=== PATIENT | male | born 1955 | race African-American/Black ===

== ENCOUNTER 2019-05-19 07:41 | Inpatient (IN) | payer OTHER, SELFPAY ==
[2019-05-19] VITALS (28 sets, daily range): BP systolic 92–106; BP diastolic 59–81; PULSE 78–102; RESP 16–33; TEMP 36.3–37; O2SAT 85–100
--- NOTE | ~2019-05-19 | CT_ITS ---
EXAMINATION: CTA chest PE protocol EXAM DATE: 05/19/2019 09:53 INDICATION: Cough and shortness of breath. TECHNIQUE: Spiral CTA of the chest (pulmonary arteries) was performed with 100 cc Omnipaque 350 intr avenous contrast injection. Images were acquired during the pulmonary arterial phase. Coronal maxi mum intensity projection 3D-reconstructions were created by the technologist on dedicated workstation . Axial, coronal and sagittal reformatted images were reviewed. The dose-length product (DLP) for t his examination was 179.74 mGy-cm. The exposure was tailored according to patient size (auto mA exp osure control), and iterative reconstruction (ASIR) was used as additional dose reduction technique. There is no prior study for comparison. FINDINGS: Pulmonary arteries are well opacified and without intraluminal filling defects. No thora cic aortic dissection. There is linear bibasilar subsegmental atelectasis. There is mild bronchiecta sis and emphysema. There are no pleural or pericardial effusions. Tracheobronchial tree is patent. There is no mediastinal, hilar or axillary lymphadenopathy. There is no pneumothorax. Heart no rmal in size. No evidence of coronary arterial calcification. Upper abdomen is unremarkable. The re is mild thoracic spondylosis without osteoblastic or osteolytic lesions identified. IMPRESSION: 1. Linear bibasilar subsegmental atelectasis. 2. Mild emphysema and bronchiectasis. 3. No pulmonary emboli. Reviewed, dictated and finalized at location B.
--- NOTE | ~2019-05-19 | XR_ITS ---
EXAMINATION: XR chest 1V portable DATE: 05/19/2019 09:12 INDICATION: Shortness of breath. TECHNIQUE: A single frontal view of the chest was obtained. COMPARISON: None. FINDINGS: There is mild atelectasis in the lower lung zones. No pleural effusion or pneumothorax. The heart size is normal. IMPRESSION: 1. Mild atelectasis in the lower lung zones. Reviewed, dictated and finalized at location A.
--- NOTE | 2019-05-19 07:49 | ED.SOB ---
HPI - SOB/Dyspnea General Chief Complaint: Shortness of Breath/Dyspnea Stated Complaint: hypotensive Time Seen by Provider: 05/19/19 07:42 Source: patient Mode of arrival: EMS Limitations: other (poor historian) History of Present Illness HPI Narrative: A 63 y/o male pt presents to the ED, via EMS from [facility] facility, with c/o SOB that began yesterday evening. Per EMS, nursing staff stated that the pt was suspected of having COVID d/t to pt having a recent onset of a cough x 1 week. Pt states that he was placed on O2 x 2L via NC this am at his nursing facility. He has an O2 Sat of 100% on 2L of O2 via NC in the ED bed. He notes having a dry cough x 1 week, but denies fever, N/V, CP or ABD pain. Pt was recently admitted to [facility] for 3 weeks due to perforated viscus s/p right hemicolectomy, ileostomy and was discharged to [facility] facility on May 08, 2019. He states that he eats by mouth and uses his g-tube to supplement. Pt denies recent travel before hospitalization. Patient was also found to have a rectal mass that is adenocarcinoma on this hospital visit that he is to follow with oncology once he has gained strength. A complete HPI is limited d/t pt being a poor historian. elicited complaint: shortness of breath Onset (ago): day(s) Associated symptoms: cough (dry) Related Data Home Medications Medication Instructions Recorded Confirmed albuterol sulfate 2.5 mg INHALATION Q6H 05/19/19 05/19/19 amiodarone 200 mg PO BID 05/19/19 05/19/19 aspirin [Aspirin Low Dose] 81 mg PO DAILY 05/19/19 05/19/19 furosemide 20 mg PO DAILY 05/19/19 05/19/19 hydrocodone-acetaminophen 1 tablet PO Q6H PRN 05/19/19 05/19/19 lisinopril 2.5 mg PO DAILY 05/19/19 05/19/19 potassium chloride [Klor-Con 10] 10 meq PO DAILY 05/19/19 05/19/19 rosuvastatin 40 mg PO HS 05/19/19 05/19/19 Allergies Allergy/AdvReac Type Severity Reaction Status Date / Time No Known Allergies Allergy Verified 05/19/19 08:24 Review of Systems Review of Systems: Narrative: A complete ROS is limited d/t to pt being a poor historian Constitutional: Constitutional: Denies fever(s) Cardiovascular: Cardiovascular: Denies chest pain and Reports dyspnea Respiratory: Respiratory: Reports cough (dry x 1 week) Gastrointestinal: Gastrointestinal: Denies abdominal pain, Denies nausea and Denies vomiting PMFSH Past Medical History Medical History (Updated 05/19/19 @ 15:35 by Kiki Cline MD) Acute respiratory failure Adenocarcinoma Bowel obstruction Colon cancer Dysphagia Gastrointestinal tube present Hypokalemia Paroxysmal atrial fibrillation Ventricular tachycardia Surgical History Surgical History (Updated 05/19/19 @ 08:20 by Briana Alonso [facility]) History of bowel resection History of colon surgery History of ileostomy History of right hemicolectomy Family History Family History (Updated 05/19/19 @ 12:36 by Wayne Louis MD) Father , probable cardiac disease age in 60s Heart disease Mother , natural causes age 79 No problems noted. 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
--- NOTE | 2019-05-19 07:58 | ECG_ITS ---
Measurements Intervals [place] Rate: 102 P: 72 NC: 144 QRS: -66 QRSD: 116 T: 91 QT: 352 QTc: 459 Interpretive Statements SINUS TACHYCARDIA ATRIAL AND VENTRICULAR PREMATURE COMPLEXES INCOMPLETE RIGHT BUNDLE BRANCH BLOCK LEFT ANTERIOR FASCICULAR BLOCK LEFT VENTRICULAR HYPERTROPHY AND ST-T CHANGE BORDERLINE ST-T WAVE ABNORMALITY- LATERAL LEADS BASELINE ARTIFACT- I, II, III, AVR, AVL, V3, V5-V6 ABNORMAL ECG Electronically Signed On 05-19-2019 8:53:41 CDT by Nitesh Camp D.O.
[2019-05-19 08:26] LABS: Basophils Absolute Auto 0.2 K/mm3 (0.0-0.1); Eosinophils Absolute Auto 0.2 K/mm3 (0-0.3); Eosinophils Percent Auto 1.1 % (0-4.4); Immature Granulocyte Absolute 0.34 K/mm3 (0.00-0.031); Immature Granulocyte Percent A 2.2 % (0-0.5); Lymphocytes Absolute Auto 1.84 K/mm3 (0.9-3.2); Lymphocytes Percent Auto 11.7 % (18.3-44.2); Mean Corpuscular HGB Conc 34.4 g/dl (32-36); Mean Corpuscular Volume 81.4 fl (80-100); Mean Platelet Volume 10.7 fl (7.4-10.4); Monocytes Absolute Auto 1.6 K/mm3 (0.1-0.6); Monocytes Percent Auto 9.9 % (2.6-8.5); Neutrophils Absolute Auto 11.6 K/mm3 (1.3-6.7); Neutrophils Percent Auto 74.1 % (45.5-73.1); Platelet Count Result 402 k/mm3 (150-375); Red Blood Count 3.93 M/mm3 (4.6-6.20); Red Cell Distribution Width 14.7 % (11.5-14.5); White Blood Count 15.7 K/mm3 (4.5-10.0)
[2019-05-19 08:35] LABS: Lactic Acid Reflex 1.5 mmol/L (0.7-2.1)
[2019-05-19 08:36] LABS: INR 1.1; Partial Thromboplastin Time 28.1 SECONDS (22.3-36.8); Prothrombin Time 13.7 Seconds (11.1-14.7)
[2019-05-19 08:37] LABS: Alanine Aminotransferase 62 U/L (4-50); Albumin Level 3.3 g/dL (3.5-5.1); Alkaline Phosphatase 406 U/L (38-126); Aspartate Amino Transferase 61 U/L (17-59); Bilirubin,Total 0.5 mg/dL (0.2-1.3); Blood Urea Nitrogen 11 mg/dL (9-20); Calcium 8.8 mg/dL (8.4-10.2); Carbon Dioxide 30 mmol/L (22-30); Chloride 91 mmol/L (98-107); Estimated CRCL calculation 101 ml/min; Estimated Glomerular Filt Rate > 60; Glucose 115 mg/dL (75-110); Magnesium 1.7 mg/dL (1.6-2.3); Potassium 4.6 mmol/L (3.4-5.0); Sodium 131 mmol/L (137-145)
[2019-05-19] MEDS: ALBUTEROL SULFATE (*SP) AEROSOL 1 PUFF 2 PUFF INHALATION ×4 (08:41→19:55)
[2019-05-19 08:45] LABS: NT Pro B Type Natriuretic Pept 532 PG/ML (5-100)
[2019-05-19] MEDS: SODIUM CHLORIDE 0.9% IV 1,000 ML 999 ML IV CONT (08:45)
[2019-05-19 08:56] LABS: Base Excess ABG 0.9 mEq/l (+/-2.0); Carboxyhemoglobin 0.5 % THb (0-2.0); Fractional Inspired Oxygen 28 %; HCO3 ABG 26.6 mEq/l (22.0-26.0); Oxygen Content ABG 15.9 %vol (16.0-22.0); Oxygen Saturation ABG 99.1 % (95.0-100.0); PCO2 ABG 46.8 mmHg (35.0-45.0); PO2 ABG 172.3 mmHg (80.0-100.0); PO2 FiO2 Ratio Arterial Blood 6.15 %; Reduced Hemoglobin 1.5 %THb (0-5.0); Total Hemoglobin 11.3 g/dL (12.0-18.0); pH ABG 7.372 (7.350-7.450)
[2019-05-19 08:57] LABS: Device NASAL CANNULA; Site Drawn LEFT BRACHIAL
--- NOTE | 2019-05-19 10:02 | PC.NURSE ---
Attempt to call sister Jessica at [phone]. Number has been disconnected.
--- NOTE | 2019-05-19 10:15 | PC.NURSE ---
Pt's nares swabbed for covid 19 per protocol. [facility] authroization # [id number]. Pt voided per urinal approx 200 cc dark, cloudy yellow urine. Specimans sent to lab. Note also that pt has small amount of blood tinged mucous to diaper. Pericare done and new depends placed. Pt tolerated procedure well. States he is feeling better at present.
[2019-05-19 10:42] LABS: Add Urine Microscopic? YES; Appearance Urine Cloudy (Clear); Bacteria Urine 4+ /hpf; Bilirubin Urine Negative (Negative); Blood Urine 2+ (Negative); Color Urine Yellow (Yellow); Glucose Urine UA Negative (Negative); Ketones Urine Negative (Negative); Leukocyte Esterase Ur 3+ LEU/UL (Negative); Mucus Urine Heavy /lpf; Nitrate Urine Positive (Negative); Protein Urine 2+ mg/dL (Negative); RBC Urine 21-50 /hpf (0-2); Squamous Epithelial Cell Urine Few /hpf (Few); Urobilinogen Urine Negative mg/dL (<2.0); WBC Urine >75 /hpf
[2019-05-19] MEDS: methylPREDNISolone SOD SUCC 125 MG VIAL IV PUSH (11:11)
--- NOTE | 2019-05-19 11:21 | PC.NURSE ---
This RN took report from residential, [place] states that called 911 for patient's low O2 saturation and hypotension. residential did not mention anything about patient having covid-19 or suspected covid-19. Reports patient has hx of respiratory failure.
--- NOTE | 2019-05-19 11:35 | PC.NURSE ---
Floor unable to take report.
--- NOTE | 2019-05-19 12:21 | PC.NURSE ---
I contacted [facility] to clarify statement made to EMS - that patient was a Covid patient shelter DON stated that he was a new patient to their facility transferred to them in the past 14 days from [facility] and was kept separate from other residents to monitor for any symptoms of COVID 19 due to new status. Clarified sister's phone number as [phone] (Jessica).
[2019-05-19] MEDS: LACTATED RINGERS 1,000 ML 75 ML IV CONT (12:30)
--- NOTE | 2019-05-19 12:40 | PM.IMHP ---
H&P: HPI History of Present Illness Chief complaint: sepsis/UTI/hypoxia/COPD Narrative: Date of visit 05/18 1214. Guanakito Anderson is a 63 year old black male with recent history of colon resection and right hemicolectomy for perforated bowel and adenocarcinoma. He was convalescing at a local alf and has been noted to have minor cough and was slightly hypoxic and the sent emergency room for evaluation. Because he was there less than 14 days in the alf and was hypoxic he was considered a potential COVID patient. Had no fever. He denied any urinary symptoms but on arrival here was found to have marked pyuria and CT scan revealed no definite infiltrates or evidence of pneumonia or pulmonary emboli. He was admitted with what was thought to be mild COPD exacerbation with hypoxia and urinary tract infection probable early sepsis. Review of Systems Review of Systems: Narrative: Review of the systems reviewed and patient is not that reliable with orientation or responses but Constitutional he has lost least 40 lb over last 6 months no fevers since discharge apparently Eye no double vision scotoma Mouth no pharyngitis laryngitis Pulmonary as present illness cough primarily nonproductive no hemoptysis CV no chest pain palpitations although he had AFib and some short runs of V-tach while inpatient in [place] GI tube feedings,no hx of ulcers denies any symptoms Neuro no history of seizures or syncope [facility] Past Medical History Medical History (Updated 05/19/19 @ 13:15 by Wayne Louis MD) Acute respiratory failure Adenocarcinoma Bowel obstruction Colon cancer Dysphagia Gastrointestinal tube present Hypokalemia Paroxysmal atrial fibrillation Ventricular tachycardia Surgical History Surgical History ([facility]/19/19 @ 08:[facility] History of bowel resection History of colon surgery History of ileostomy History of right hemicolectomy Family History Family History (Updated 05/19/19 @ 12:36 by Wayne Louis MD) Father , probable cardiac disease age in 60s Heart disease Mother , natural causes age 79 No problems noted. 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 Gender identity (if verbalized by the patient): Male Meds Home Medications and Allergies Home Medications Medication Instructions Recorded Confirmed Type albuterol sulfate 2.5 mg INHALATION Q6H 05/19/19 05/19/19 History amiodarone 200 mg PO BID 05/19/19 05/19/19 History aspirin [Aspirin Low Dose] 05/19/19 History furosemide 20 mg PO DAILY 05/19/19 05/19/19 History hydrocodone-acetaminophen 1 tablet PO Q6H PRN 05/19/19 05/19/19 History lisinopril 2.5 mg PO DAILY 05/19/19 05/19/19 History potassium chloride [Klor-Con 10] 10 meq PO DAILY 05/19/19 05/19/19 History rosuvastatin 40 mg PO HS 05/19/19 05/19/19 History Allergies Allergy/AdvReac Type Severity Reaction Status Date / Time No Known Allergies Allergy Verified 05/19/19 08:24 Vital Signs Vital Signs - 24 hr 05/19/19 07:41 05/19/19 07:48 05/19/19 08:16 Temperature 36.8 C Pulse Rate 102 H 99 101 H Respiratory Rate 29 H 33 H Blood Pressure 102/77 106/81 Pulse Oximetry 89 L 05/19/19 08:30 05/19/19 08:31 05/19/19 08:45 Temperature Pulse Rate 98 102 H 100 Respiratory Rate 28 H 26 H 29 H Blood Pressure 104/78 Pulse Oximetry 05/19/19 08:46 05/19/19 09:01 05/19/19 09:16
--- NOTE | 2019-05-19 15:52 | ADMGEN ---
This patient, Guanakito Anderson, was admitted to [facility] Surg Room 328-01 at 1230. Patient/family oriented to hospital policies and general routines including ID bracelet, bed and alarms, visiting hours, pain management, procedures, bathroom and other care routines, personal items, smoking policy, room service/diet, and visiting hours. Valuables list has been completed. Information on how to activate the Rapid Response Team has been discussed. Patient/Family are encouraged to report perceived risks to care and to ask questions if they do not understand what they are told or what they should do.
[2019-05-19 18:08] LABS: Glucose Point of Care 196 (65-105)
[2019-05-19 18:09] LABS: Glucose Point of Care 168 (65-105)
[2019-05-19 18:17] LABS: Base Excess ABG 0.1 mEq/l (+/-2.0); Fractional Inspired Oxygen 28 %; HCO3 ABG 25.7 mEq/l (22.0-26.0); Oxygen Content ABG 15.3 %vol (16.0-22.0); Oxygen Saturation ABG 98.2 % (95.0-100.0); Oxyhemoglobin 96.8 % THb (90.0-100.0); PCO2 ABG 45.7 mmHg (35.0-45.0); PO2 ABG 119.7 mmHg (80.0-100.0); PO2 FiO2 Ratio Arterial Blood 4.28 %; Total Hemoglobin 11.1 g/dL (12.0-18.0); pH ABG 7.368 (7.350-7.450)
[2019-05-19 18:20] LABS: Device NASAL CANNULA; Modified Allen's Test Pass; Site Drawn RIGHT RADIAL
[2019-05-19] MEDS: ENOXAPARIN 40 MG/0.4 ML SYRINGE SUB-Q (21:10)
[2019-05-19] MEDS: AMIODARONE HCL 200 MG TABLET PO (21:10)
[2019-05-19] MEDS: ROSUVASTATIN 10 MG TABLET 40 MG PO (21:10)
[2019-05-19 21:42] LABS: Glucose Point of Care 152 (65-105)
[2019-05-20] VITALS (11 sets, daily range): BP systolic 93–107; BP diastolic 59–63; PULSE 72–104; RESP 16–22; TEMP 36.3–37.1; O2SAT 94–100; BMI 17.2
[2019-05-20] MEDS: LACTATED RINGERS 1,000 ML 75 ML IV CONT ×2 (01:06→12:58)
[2019-05-20 06:00] LABS: Basophils Absolute Auto 0.1 K/mm3 (0.0-0.1); Basophils Percent Auto 0.4 % (0.2-1.2); Hematocrit 27.6 % (42.0-52.0); Hemoglobin 9.2 g/dL (14.0-18.0); Immature Granulocyte Absolute 0.25 K/mm3 (0.00-0.031); Immature Granulocyte Percent A 1.9 % (0-0.5); Lymphocytes Absolute Auto 1.42 K/mm3 (0.9-3.2); Lymphocytes Percent Auto 10.7 % (18.3-44.2); Mean Corpuscular HGB Conc 33.3 g/dl (32-36); Mean Corpuscular Hemoglobin 27.5 pg (26-34); Mean Corpuscular Volume 82.4 fl (80-100); Mean Platelet Volume 10.3 fl (7.4-10.4); Monocytes Absolute Auto 0.8 K/mm3 (0.1-0.6); Monocytes Percent Auto 5.8 % (2.6-8.5); Neutrophils Absolute Auto 10.8 K/mm3 (1.3-6.7); Neutrophils Percent Auto 81.2 % (45.5-73.1); Platelet Count Result 400 k/mm3 (150-375); Red Blood Count 3.35 M/mm3 (4.6-6.20); Red Cell Distribution Width 14.7 % (11.5-14.5); White Blood Count 13.3 K/mm3 (4.5-10.0)
[2019-05-20 06:21] LABS: Alanine Aminotransferase 49 U/L (4-50); Albumin Level 2.9 g/dL (3.5-5.1); Alkaline Phosphatase 325 U/L (38-126); Aspartate Amino Transferase 53 U/L (17-59); Bilirubin,Total 0.2 mg/dL (0.2-1.3); Blood Urea Nitrogen 14 mg/dL (9-20); Calcium 8.7 mg/dL (8.4-10.2); Carbon Dioxide 32 mmol/L (22-30); Chloride 96 mmol/L (98-107); Estimated CRCL calculation 99 ml/min; Estimated Glomerular Filt Rate > 60; Glucose 206 mg/dL (75-110); Potassium 4.6 mmol/L (3.4-5.0); Sodium 133 mmol/L (137-145)
[2019-05-20 08:27] LABS: Glucose Point of Care 183 (65-105)
[2019-05-20] MEDS: AMIODARONE HCL 200 MG TABLET PO ×2 (09:58→20:27)
[2019-05-20] MEDS: FUROSEMIDE 20 MG TABLET PO (09:59)
[2019-05-20] MEDS: POTASSIUM CHLORIDE 10 MEQ TABLET.ER PO (09:59)
[2019-05-20] MEDS: ASPIRIN 81 MG ENTERIC TABLET PO (09:59)
[2019-05-20] MEDS: ALBUTEROL SULFATE (*SP) AEROSOL 1 PUFF 2 PUFF INHALATION ×4 (10:39→20:52)
[2019-05-20 12:02] LABS: Glucose Point of Care 188 (65-105)
--- NOTE | 2019-05-20 14:26 | PM.IMPN ---
Progress Note: A&P Assessment and Plan (1) Acute respiratory failure with hypoxemia: Code(s): J96.01 - Acute respiratory failure with hypoxia Status: Acute Assessment and Plan: Probably on the basis of COPD and/or sepsis. CT showed no emboli or definite infiltrate. BNP only in the 500s. Continue updrafts and saturating well on 2 L and no steroids at present time. Did have mild cough and ceftriaxone was added for UTI which will help pulmonary also. Low O2 sat may have been simply the results of his arterial constriction and poor detection per finger pulse ox.. Repeat oxygen saturation by ABG was much higher. Eighty-two versus 119. (2) Sepsis: Code(s): A41.9 - Sepsis, unspecified organism Status: Acute Assessment and Plan: On the basis of leukocytosis and tachypnea. Urine appears likely source and culture still pending but blood cultures already growing gram-negative rods. Had E coli sepsis at recent hospitalization thought to be GI source Lactic acid normal (3) Urinary tract infection: Code(s): N39.0 - Urinary tract infection, site not specified Status: Acute Assessment and Plan: Marked pyuria on UA, urine pending and ceftriaxone started, blood culture growing gram-negative rods (4) Malnutrition: Code(s): E46 - Unspecified protein-calorie malnutrition Status: Acute Assessment and Plan: Continue tube feedings and oral feedings (5) Paroxysmal atrial fibrillation: Code(s): I48.0 - Paroxysmal atrial fibrillation Status: Acute Assessment and Plan: Sinus rhythm at the present time will continue amiodarone. Not a good candidate for anticoagulation which was never started (6) DVT prophylaxis: Code(s): Z29.9 - Encounter for prophylactic measures, unspecified Status: Acute Assessment and Plan: Lovenox Subjective Date/time seen: 05/20/19 14:26 Interval history: Date of visit 05/19. 63-year-old black male with recent colon resection ileostomy and J-tube placement admitted with decreasing oxygen saturation in sepsis. More alert today and feeling better and blood cultures are growing gram-negative rods thought to be urinary source.. Saturation was inaccurate by periphery thought secondary to his vascular compromise with his sepsis. Exam Narrative: Exam Narrative: Blood pressure 100/62 pulse is 100 saturating 100% on 2 L nasal cannula Pupils equal reactive to light sclera anicteric Lungs clear CV regular rate rhythm tachy Abdomen is soft G-tube in place and ileostomy functioning Extremities without edema distal pulses 2+ and warmer today Neuro alert cooperative no focal focal deficits Objective Data Vital Signs Vital Signs: Vital Signs - 24 hr 05/19/19 18:00 05/19/19 19:56 05/19/19 20:00 Temperature 36.3 C L 37.0 C Pulse Rate 78 78 Respiratory Rate 18 16 Blood Pressure 99/66 L 96/68 L Pulse Oximetry 85 L 95 100 05/19/19 21:10 05/20/19 00:00 05/20/19 04:00 Temperature 36.6 C 37.0 C Pulse Rate 80 72 91 Respiratory Rate 16 16 Blood Pressure 99/62 L 95/59 L Pulse Oximetry 98 100 05/20/19 08:00 05/20/19 09:57 05/20/19 09:58 Temperature 36.9 C Pulse Rate 88 102 H 102 H Respiratory Rate 20 18 Blood Pressure 93/59 L 107/61 Pulse Oximetry 100 100 05/20/19 10:45 05/20/19 12:00 Temperature 37.1 C Pulse Rate 104 H Respiratory Rate 22 H Blood Pressure 101/63 Pulse Oximetry 95 100 Intake/Output Intake/Output: Intake & Output 05/17/19 05/18/19 05/19/19 05/20/19 23:59 23:59 23:59 23:59 Intake Total 1970 3320 Output Total 600 850 Balance 1370 2470 Meds/Results Medications: Active Medications Generic Name Dose Route Start Last Admin Trade Name Freq PRN Reason Stop Dose Admin Hydrocodone Bitart/Acetaminophen 1 tab 05/19/19 13:19 05/19/19 14:40 [place] 7.5-325 Mg PO 1 tab Q6H PRN Administration Pain (Scale Score 7-10) Albuterol 2 puff 04
[2019-05-20 16:19] LABS: Glucose Point of Care 180 (65-105)
[2019-05-20] MEDS: ENOXAPARIN 40 MG/0.4 ML SYRINGE SUB-Q (20:27)
[2019-05-20] MEDS: ROSUVASTATIN 10 MG TABLET 40 MG PO (20:28)
[2019-05-20 21:50] LABS: Glucose Point of Care 175 (65-105)
[2019-05-21] VITALS (10 sets, daily range): BP systolic 96–106; BP diastolic 58–65; PULSE 65–93; RESP 16–20; TEMP 36.5–37.3; O2SAT 93–100
[2019-05-21] MEDS: LACTATED RINGERS 1,000 ML 75 ML IV CONT (03:46)
[2019-05-21] MEDS: ASPIRIN 81 MG ENTERIC TABLET PO (08:11)
[2019-05-21] MEDS: POTASSIUM CHLORIDE 10 MEQ TABLET.ER PO (08:11)
[2019-05-21] MEDS: AMIODARONE HCL 200 MG TABLET PO ×2 (08:17→22:50)
[2019-05-21] MEDS: ALBUTEROL SULFATE (*SP) AEROSOL 1 PUFF 2 PUFF INHALATION ×4 (09:00→20:10)
[2019-05-21] MEDS: FUROSEMIDE 20 MG TABLET PO (09:20)
[2019-05-21 09:33] LABS: Basophils Absolute Auto 0.1 K/mm3 (0.0-0.1); Basophils Percent Auto 0.4 % (0.2-1.2); Eosinophils Absolute Auto 0.1 K/mm3 (0-0.3); Eosinophils Percent Auto 1.1 % (0-4.4); Hemoglobin 10.2 g/dL (14.0-18.0); Immature Granulocyte Absolute 0.23 K/mm3 (0.00-0.031); Immature Granulocyte Percent A 1.9 % (0-0.5); Lymphocytes Absolute Auto 1.61 K/mm3 (0.9-3.2); Lymphocytes Percent Auto 13.2 % (18.3-44.2); Mean Corpuscular Hemoglobin 27.9 pg (26-34); Mean Corpuscular Volume 82.2 fl (80-100); Monocytes Absolute Auto 1.1 K/mm3 (0.1-0.6); Monocytes Percent Auto 9.1 % (2.6-8.5); Neutrophils Absolute Auto 9.1 K/mm3 (1.3-6.7); Neutrophils Percent Auto 74.3 % (45.5-73.1); Platelet Count Result 448 k/mm3 (150-375); Red Blood Count 3.65 M/mm3 (4.6-6.20); Red Cell Distribution Width 15.1 % (11.5-14.5); White Blood Count 12.2 K/mm3 (4.5-10.0)
[2019-05-21 09:52] LABS: Blood Urea Nitrogen 8 mg/dL (9-20)
[2019-05-21 09:53] LABS: Calcium 8.6 mg/dL (8.4-10.2); Carbon Dioxide 36 mmol/L (22-30); Chloride 94 mmol/L (98-107); Estimated CRCL calculation 120 ml/min; Estimated Glomerular Filt Rate > 60; Glucose 94 mg/dL (75-110); Potassium 4.2 mmol/L (3.4-5.0); Sodium 133 mmol/L (137-145)
--- NOTE | 2019-05-21 16:33 | PM.IMPN ---
Progress Note: A&P Assessment and Plan (1) Acute respiratory failure with hypoxemia: Code(s): J96.01 - Acute respiratory failure with hypoxia Status: Acute Assessment and Plan: Probably on the basis of COPD and/or sepsis. CT showed no emboli or definite infiltrate. BNP only in the 500s. Continue updrafts and saturating well on 2 L and no steroids at present time. Did have mild cough and ceftriaxone was added for UTI which will help pulmonary also. Low O2 sat may have been simply the results of his arterial constriction and poor detection per finger pulse ox.. Repeat oxygen saturation by ABG was much higher. Eighty-two versus 119. and doing well today once is perfusing better (2) Sepsis: Code(s): A41.9 - Sepsis, unspecified organism Status: Acute Assessment and Plan: On the basis of leukocytosis and tachypnea. Urine appears likely source and culture only mixed organisms but marked pyuria and blood cultures growing coli. Had E coli sepsis at recent hospitalization thought to be GI source then. Lactic acid normal (3) Urinary tract infection: Code(s): N39.0 - Urinary tract infection, site not specified Status: Acute Assessment and Plan: Marked pyuria on UA, urine mixed organisms and ceftriaxone started, blood culture growing E coli (4) Malnutrition: Code(s): E46 - Unspecified protein-calorie malnutrition Status: Acute Assessment and Plan: Continue tube feedings and oral feedings (5) Paroxysmal atrial fibrillation: Code(s): I48.0 - Paroxysmal atrial fibrillation Status: Acute Assessment and Plan: Sinus rhythm at the present time will continue amiodarone. Not a good candidate for anticoagulation which was never started (6) DVT prophylaxis: Code(s): Z29.9 - Encounter for prophylactic measures, unspecified Status: Acute Assessment and Plan: Lovenox Subjective Date/time seen: 05/21/19 16:33 Interval history: Date of visit 05/20. 63-year-old black male with recent colon resectionwith ileostomy and J-tube placement admitted with decreasing oxygen saturation and sepsis. More alert today and feeling better and blood cultures are growing Ecoli thought to be urinary source.. Saturation was inaccurate by periphery thought secondary to his vascular compromise with his sepsis. Exam Narrative: Exam Narrative: Blood pressure 106/64 pulse is 72 saturating 100% on 2 L nasal cannula Pupils equal reactive to light sclera anicteric Lungs clear CV regular rate rhythm tachy Abdomen is soft G-tube in place and ileostomy functioning Extremities without edema distal pulses 2+ and warmer today Neuro alert cooperative no focal focal deficits Objective Data Vital Signs Vital Signs: Vital Signs - 24 hr 05/20/19 20:00 05/20/19 20:27 05/20/19 20:50 Temperature 36.8 C Pulse Rate 95 97 Respiratory Rate 16 Blood Pressure 101/61 Pulse Oximetry 100 94 05/21/19 00:00 05/21/19 03:53 05/21/19 07:56 Temperature 37.0 C 36.5 C 36.8 C Pulse Rate 85 84 89 Respiratory Rate 16 20 16 Blood Pressure 98/58 L 96/61 L 100/65 Pulse Oximetry 98 100 100 05/21/19 08:17 05/21/19 09:03 05/21/19 13:36 Temperature 37.1 C Pulse Rate 65 86 Respiratory Rate 16 Blood Pressure 101/61 Pulse Oximetry 93 100 05/21/19 16:29 Temperature 37.3 C Pulse Rate 93 Respiratory Rate 16 Blood Pressure 106/65 Pulse Oximetry 100 Intake/Output Intake/Output: Intake & Output 05/18/19 05/19/19 05/20/19 05/21/19 23:59 23:59 23:59 23:59 Intake Total 1970 3490 2330 Output Total 600 1450 600 Balance 1370 2040 1730 Meds/Results Medications: Active Medications Generic Name Dose Route Start Last Admin Trade Name Freq PRN Reason Stop Dose Admin Hydrocodone Bitart/Acetaminophen 1 tab 05/19/19 13:19 05/21/19 00:53 [place] 7.5-325 Mg PO 1 tab Q6H PRN Administration Pain (Scale Score 7-10) Albuterol 2 p
[2019-05-21 17:25] LABS: Glucose Point of Care 156 (65-105)
[2019-05-21] MEDS: ENOXAPARIN 40 MG/0.4 ML SYRINGE SUB-Q (23:00)
[2019-05-21] MEDS: ROSUVASTATIN 10 MG TABLET 40 MG PO (23:01)
[2019-05-22] VITALS (11 sets, daily range): BP systolic 91–106; BP diastolic 56–67; PULSE 70–100; RESP 16–20; TEMP 36.7–37.3; O2SAT 96–100
[2019-05-22 03:59] LABS: Glucose Point of Care 147 (65-105)
[2019-05-22 06:04] LABS: Basophils Absolute Auto 0.1 K/mm3 (0.0-0.1); Basophils Percent Auto 0.6 % (0.2-1.2); Eosinophils Absolute Auto 0.1 K/mm3 (0-0.3); Eosinophils Percent Auto 1.1 % (0-4.4); Hematocrit 29.1 % (42.0-52.0); Hemoglobin 9.6 g/dL (14.0-18.0); Immature Granulocyte Absolute 0.35 K/mm3 (0.00-0.031); Immature Granulocyte Percent A 2.7 % (0-0.5); Lymphocytes Absolute Auto 1.84 K/mm3 (0.9-3.2); Lymphocytes Percent Auto 14.1 % (18.3-44.2); Mean Corpuscular Hemoglobin 27.4 pg (26-34); Mean Corpuscular Volume 82.9 fl (80-100); Mean Platelet Volume 10.4 fl (7.4-10.4); Monocytes Absolute Auto 1.5 K/mm3 (0.1-0.6); Monocytes Percent Auto 11.5 % (2.6-8.5); Neutrophils Absolute Auto 9.2 K/mm3 (1.3-6.7); Platelet Count Result 449 k/mm3 (150-375); Red Blood Count 3.51 M/mm3 (4.6-6.20); Red Cell Distribution Width 15.3 % (11.5-14.5); White Blood Count 13.1 K/mm3 (4.5-10.0)
[2019-05-22 06:17] LABS: Blood Urea Nitrogen 11 mg/dL (9-20); Calcium 8.3 mg/dL (8.4-10.2); Carbon Dioxide 39 mmol/L (22-30); Chloride 92 mmol/L (98-107); Estimated CRCL calculation 153 ml/min; Estimated Glomerular Filt Rate > 60; Glucose 114 mg/dL (75-110); Potassium 4.2 mmol/L (3.4-5.0); Sodium 133 mmol/L (137-145)
[2019-05-22 08:28] LABS: Glucose Point of Care 104 (65-105)
[2019-05-22] MEDS: FUROSEMIDE 20 MG TABLET PO (09:32)
[2019-05-22] MEDS: AMIODARONE HCL 200 MG TABLET PO ×2 (09:33→21:18)
[2019-05-22] MEDS: ASPIRIN 81 MG ENTERIC TABLET PO (09:34)
[2019-05-22] MEDS: POTASSIUM CHLORIDE 10 MEQ TABLET.ER PO (09:34)
[2019-05-22] MEDS: ALBUTEROL SULFATE (*SP) AEROSOL 1 PUFF 2 PUFF INHALATION ×3 (09:37→21:18)
--- NOTE | 2019-05-22 10:16 | PCNFU ---
Nutrition Follow-Up Complete: Underweight R/T reduced PO intake as evidence by BMI of 17.3. Goal: Total intake will meet estimated nutrition needs progressing towards goal. Pt current nutrition is Soft and Bite Sized Level 6/Mildly Thick Level 2 with Tube feedings of Jevity 1.5 q 6 hours. Nutrition recommendation:Agree Last recorded weight is 56.2 kg. No new weight. Bowel Motility:+BM reported 05/19 Labs Reviewed:Glu 114,Cr 0.3,Na 133,Hct 29.1,Hgb 9.6 Meds Noted:Lovenox,Lasix Additional Notes: Spoke with nursing today for follow up due to COVID-19 precautions. Patient intake on oral diet has been poor 0-25%. Tube feedings had been 370 ml q 4 hours, patient reporting feeling full. MD orders to change feeding to q 6 hours of Jevity 1.5. Patient will be receiving 2220 kcals and 60 gms protein from tube feedings meeting 100% of patients caloric needs. Free Water Flushes 30 ml q 4 hours. Diet supplements will continue with Thrive Ice Cream BID providing an additional 270 and 9 gms protein. Monitoring: PO intake, EN tolerance, labs, weight every t/f
[2019-05-22 12:35] LABS: Glucose Point of Care 79 (65-105)
--- NOTE | 2019-05-22 13:53 | PM.IMPN ---
Progress Note: A&P Assessment and Plan (1) Acute respiratory failure with hypoxemia: Code(s): J96.01 - Acute respiratory failure with hypoxia Status: Acute Assessment and Plan: Probably on the basis of COPD and/or sepsis. CT showed no emboli or definite infiltrate. BNP only in the 500s. Continue updrafts and saturating well on 1 L and no steroids at present time. Did have mild cough and ceftriaxone was added for UTI which will help pulmonary also. Low O2 sat may have been simply the results of his arterial constriction and poor detection per finger pulse ox.. Repeat oxygen saturation by ABG was much higher. Eighty-two versus 119. and doing well today once is perfusing better (2) Sepsis: Code(s): A41.9 - Sepsis, unspecified organism Status: Acute Assessment and Plan: On the basis of leukocytosis and tachypnea. Urine appears likely source and culture only mixed organisms but marked pyuria and blood cultures growing coli. Had E coli sepsis at recent hospitalization thought to be GI source then. Lactic acid normal Day 05/18 of IV antibotics (3) Urinary tract infection: Code(s): N39.0 - Urinary tract infection, site not specified Status: Acute Assessment and Plan: Marked pyuria on UA, urine mixed organisms and ceftriaxone started, blood culture growing E coli sensitive to ceftriaxone (4) Malnutrition: Code(s): E46 - Unspecified protein-calorie malnutrition Status: Acute Assessment and Plan: Continue tube feedings and oral feedings (5) Paroxysmal atrial fibrillation: Code(s): I48.0 - Paroxysmal atrial fibrillation Status: Acute Assessment and Plan: Sinus rhythm at the present time will continue amiodarone. Not a good candidate for anticoagulation which was never started (6) DVT prophylaxis: Code(s): Z29.9 - Encounter for prophylactic measures, unspecified Status: Acute Assessment and Plan: Lovenox Subjective Date/time seen: 05/22/19 13:53 Interval history: Date of visit 05/21. 63-year-old black male with recent colon resection with ileostomy and J-tube placement admitted with decreasing oxygen saturation and sepsis. More alert each day and feeling better and blood cultures are growing Ecoli thought to be urinary source.. Saturation was inaccurate by periphery thought secondary to his vascular compromise with his sepsis. No complaints Exam Narrative: Exam Narrative: Blood pressure 98/60 pulse is 92 saturating 100% on 1 L nasal cannula Pupils equal reactive to light sclera anicteric Lungs clear CV regular rate rhythm and less tachy Abdomen is soft G-tube in place and ileostomy functioning Extremities without edema distal pulses 2+ and warmer today Neuro alert cooperative no focal focal deficits Objective Data Vital Signs Vital Signs: Vital Signs - 24 hr 05/21/19 16:29 05/21/19 20:12 05/21/19 22:00 Temperature 37.3 C 37.2 C Pulse Rate 93 89 Respiratory Rate 16 20 Blood Pressure 106/65 103/62 Pulse Oximetry 100 94 100 05/21/19 22:50 05/22/19 02:00 05/22/19 06:00 Temperature 36.7 C 36.7 C Pulse Rate 86 100 73 Respiratory Rate 20 20 Blood Pressure 102/63 106/67 Pulse Oximetry 100 96 05/22/19 09:33 05/22/19 09:38 05/22/19 10:00 Temperature 36.7 C Pulse Rate 70 87 92 Respiratory Rate 16 16 Blood Pressure 96/61 L Pulse Oximetry 99 100 05/22/19 10:10 Temperature Pulse Rate 77 Respiratory Rate 16 Blood Pressure Pulse Oximetry 99 Intake/Output Intake/Output: Intake & Output 05/19/19 05/20/19 05/21/19 05/22/19 23:59 23:59 23:59 23:59 Intake Total 1970 3490 3890 1000 Output Total 600 1450 1400 825 Balance 1370 2040 2490 175 Meds/Results Medications: Active Medications Generic Name Dose Route Start Last Admin Trade Name Freq PRN Reason Stop Dose Admin Hydrocodone Bitart/Acetaminophen 1 tab 05/19/19 13:19 05/21/19 00:53 [place] 7.5-325 Mg P
[2019-05-22 18:03] LABS: Glucose Point of Care 137 (65-105)
[2019-05-22 20:33] LABS: Glucose Point of Care 204 (65-105)
[2019-05-22] MEDS: ROSUVASTATIN 10 MG TABLET 40 MG PO (21:18)
[2019-05-22] MEDS: ENOXAPARIN 40 MG/0.4 ML SYRINGE SUB-Q (21:18)
[2019-05-23] VITALS (8 sets, daily range): BP systolic 99–119; BP diastolic 66–74; PULSE 66–98; RESP 16–18; TEMP 36–37.1; O2SAT 97–100
[2019-05-23] MEDS: ALBUTEROL SULFATE (*SP) AEROSOL 1 PUFF 2 PUFF INHALATION ×3 (07:46→19:21)
[2019-05-23] MEDS: POTASSIUM CHLORIDE 10 MEQ TABLET.ER PO (08:08)
[2019-05-23] MEDS: ASPIRIN 81 MG ENTERIC TABLET PO (08:08)
[2019-05-23] MEDS: FUROSEMIDE 20 MG TABLET PO (08:09)
[2019-05-23] MEDS: AMIODARONE HCL 200 MG TABLET PO ×2 (08:09→21:36)
[2019-05-23 12:37] LABS: Glucose Point of Care 166 (65-105)
[2019-05-23 12:46] LABS: Glucose Point of Care 159 (65-105)
--- NOTE | 2019-05-23 15:18 | PM.IMPN ---
Progress Note: A&P Assessment and Plan (1) Acute respiratory failure with hypoxemia: Code(s): J96.01 - Acute respiratory failure with hypoxia Status: Acute Assessment and Plan: Probably on the basis of COPD and/or sepsis. CT showed no emboli or definite infiltrate. BNP only in the 500s. Continue updrafts and saturating well now on RA and no steroids at present time. Did have mild cough and ceftriaxone was added for UTI which will help pulmonary also. Low O2 sat may have been simply the results of his arterial constriction and poor detection per finger pulse ox.. Repeat oxygen saturation by ABG was much higher. Eighty-two versus 119. and doing well today once is perfusing better (2) Sepsis: Code(s): A41.9 - Sepsis, unspecified organism Status: Acute Assessment and Plan: On the basis of leukocytosis and tachypnea. Urine appears likely source and culture only mixed organisms but marked pyuria and blood cultures growing coli sensitive to ceftriaxone. Had E coli sepsis at recent hospitalization thought to be GI source then. Lactic acid normal Day 5 of IV antibotics recheck WBC in am (3) Urinary tract infection: Code(s): N39.0 - Urinary tract infection, site not specified Status: Acute Assessment and Plan: Marked pyuria on UA, urine mixed organisms and ceftriaxone started, blood culture growing E coli sensitive to ceftriaxone (4) Malnutrition: Code(s): E46 - Unspecified protein-calorie malnutrition Status: Acute Assessment and Plan: Continue tube feedings and oral feedings (5) Paroxysmal atrial fibrillation: Code(s): I48.0 - Paroxysmal atrial fibrillation Status: Acute Assessment and Plan: Sinus rhythm at the present time will continue amiodarone. Not a good candidate for anticoagulation which was never started (6) DVT prophylaxis: Code(s): Z29.9 - Encounter for prophylactic measures, unspecified Status: Acute Assessment and Plan: Lovenox Subjective Date/time seen: 05/23/19 15:18 Interval history: Date of visit 05/22. 63-year-old black male with recent colon resection with ileostomy and J-tube placement admitted with decreasing oxygen saturation and sepsis. More alert each day and feeling better and blood cultures are growing Ecoli thought to be urinary source.. Saturation was inaccurate by periphery thought secondary to his vascular compromise with his sepsis. No complaints Exam Narrative: Exam Narrative: Blood pressure 98/66 pulse is 94 saturating 100% on RA Pupils equal reactive to light sclera anicteric Lungs clear CV regular rate rhythm and less tachy Abdomen is soft G-tube in place and ileostomy functioning Extremities without edema distal pulses 2+ and warmer today Neuro alert cooperative no focal focal deficits Objective Data Vital Signs Vital Signs: Vital Signs - 24 hr 05/22/19 18:00 05/22/19 21:18 05/22/19 21:21 Temperature 36.7 C Pulse Rate 91 89 97 Respiratory Rate 18 18 Blood Pressure 100/60 Pulse Oximetry 100 96 05/22/19 22:00 05/23/19 02:00 05/23/19 06:00 Temperature 37.3 C 36.9 C 37.1 C Pulse Rate 97 66 88 Respiratory Rate 20 18 16 Blood Pressure 100/60 105/68 102/67 Pulse Oximetry 99 97 99 05/23/19 07:46 05/23/19 08:09 05/23/19 10:03 Temperature 36.0 C L Pulse Rate 88 88 95 Respiratory Rate 18 16 Blood Pressure 99/66 L Pulse Oximetry 97 100 Intake/Output Intake/Output: Intake & Output 05/20/19 05/21/19 05/22/19 05/23/19 23:59 23:59 23:59 23:59 Intake Total 3490 3890 2550 920 Output Total 1450 1400 1875 1000 Balance 2040 2490 675 -80 Meds/Results Medications: Active Medications Generic Name Dose Route Start Last Admin Trade Name Freq PRN Reason Stop Dose Admin Hydrocodone Bitart/Acetaminophen 1 tab 05/19/19 13:19 05/21/19 00:53 [place] 7.5-325 Mg PO 1 tab Q6H PRN Administration Pain (Scale Score 7-10)
[2019-05-23 17:43] LABS: Glucose Point of Care 94 (65-105)
[2019-05-23 20:36] LABS: Glucose Point of Care 248 (65-105)
[2019-05-23] MEDS: ROSUVASTATIN 10 MG TABLET 40 MG PO (21:36)
[2019-05-23] MEDS: ENOXAPARIN 40 MG/0.4 ML SYRINGE SUB-Q (21:36)
[2019-05-24] VITALS (10 sets, daily range): BP systolic 101–110; BP diastolic 64–75; PULSE 93–104; RESP 16–20; TEMP 36.5–36.9; O2SAT 93–99
[2019-05-24 06:00] LABS: Basophils Absolute Auto 0.1 K/mm3 (0.0-0.1); Basophils Percent Auto 0.8 % (0.2-1.2); Eosinophils Absolute Auto 0.2 K/mm3 (0-0.3); Eosinophils Percent Auto 1.3 % (0-4.4); Hematocrit 30.9 % (42.0-52.0); Hemoglobin 10.5 g/dL (14.0-18.0); Immature Granulocyte Absolute 0.62 K/mm3 (0.00-0.031); Immature Granulocyte Percent A 4.3 % (0-0.5); Lymphocytes Absolute Auto 1.82 K/mm3 (0.9-3.2); Lymphocytes Percent Auto 12.7 % (18.3-44.2); Mean Corpuscular Hemoglobin 27.6 pg (26-34); Mean Corpuscular Volume 81.1 fl (80-100); Mean Platelet Volume 10.6 fl (7.4-10.4); Monocytes Absolute Auto 1.4 K/mm3 (0.1-0.6); Monocytes Percent Auto 9.8 % (2.6-8.5); Neutrophils Absolute Auto 10.2 K/mm3 (1.3-6.7); Neutrophils Percent Auto 71.1 % (45.5-73.1); Platelet Count Result 508 k/mm3 (150-375); Red Blood Count 3.81 M/mm3 (4.6-6.20); White Blood Count 14.3 K/mm3 (4.5-10.0)
[2019-05-24 06:16] LABS: Blood Urea Nitrogen 13 mg/dL (9-20); Calcium 8.4 mg/dL (8.4-10.2); Carbon Dioxide 38 mmol/L (22-30); Chloride 91 mmol/L (98-107); Estimated CRCL calculation 153 ml/min; Estimated Glomerular Filt Rate > 60; Glucose 190 mg/dL (75-110); Potassium 4.5 mmol/L (3.4-5.0); Sodium 132 mmol/L (137-145)
[2019-05-24] MEDS: ALBUTEROL SULFATE (*SP) AEROSOL 1 PUFF 2 PUFF INHALATION ×4 (07:32→20:21)
[2019-05-24 08:04] LABS: Glucose Point of Care 215 (65-105)
[2019-05-24] MEDS: POTASSIUM CHLORIDE 10 MEQ TABLET.ER PO (08:28)
[2019-05-24] MEDS: ASPIRIN 81 MG ENTERIC TABLET PO (08:28)
[2019-05-24] MEDS: FUROSEMIDE 20 MG TABLET PO (08:28)
[2019-05-24] MEDS: AMIODARONE HCL 200 MG TABLET PO ×2 (08:28→20:20)
[2019-05-24 11:57] LABS: Glucose Point of Care 86 (65-105)
--- NOTE | 2019-05-24 16:17 | PM.IMPN ---
Progress Note: A&P Assessment and Plan (1) Acute respiratory failure with hypoxemia: Code(s): J96.01 - Acute respiratory failure with hypoxia Status: Acute Assessment and Plan: Probably on the basis of COPD and/or sepsis. CT showed no emboli or definite infiltrate. BNP only in the 500s. Continue updrafts and saturating well now on RA and no steroids at present time. Did have mild cough and ceftriaxone was added for UTI which will help pulmonary also. Low O2 sat may have been simply the results of his arterial constriction and poor detection per finger pulse ox.. Repeat oxygen saturation by ABG was much higher. Eighty-two versus 119. and doing well today once is perfusing better (2) Sepsis: Code(s): A41.9 - Sepsis, unspecified organism Status: Acute Assessment and Plan: On the basis of leukocytosis and tachypnea. Urine appears likely source and culture only mixed organisms but marked pyuria and blood cultures growing coli sensitive to ceftriaxone. Had E coli sepsis at recent hospitalization thought to be GI source then. Lactic acid normal Day 6/7 of IV antibotics WBC not much change and could be secondary to his tumor load (3) Urinary tract infection: Code(s): N39.0 - Urinary tract infection, site not specified Status: Acute Assessment and Plan: Marked pyuria on UA, urine mixed organisms and ceftriaxone started, blood culture growing E coli sensitive to ceftriaxone (4) Malnutrition: Code(s): E46 - Unspecified protein-calorie malnutrition Status: Acute Assessment and Plan: Continue tube feedings and oral feedings (5) Paroxysmal atrial fibrillation: Code(s): I48.0 - Paroxysmal atrial fibrillation Status: Acute Assessment and Plan: Sinus rhythm at the present time will continue amiodarone. Not a good candidate for anticoagulation which was never started (6) DVT prophylaxis: Code(s): Z29.9 - Encounter for prophylactic measures, unspecified Status: Acute Assessment and Plan: Lovenox Subjective Date/time seen: 05/24/19 16:17 Interval history: Date of visit 05/23. 63-year-old black male with recent colon resection with ileostomy and J-tube placement admitted with decreasing oxygen saturation and sepsis. More alert each day and feeling better and blood cultures are growing Ecoli thought to be urinary source.. Saturation was inaccurate by periphery thought secondary to his vascular compromise with his sepsis. No complaints, feeling better and wants to get up Exam Narrative: Exam Narrative: Blood pressure 104/66 pulse is 96 saturating 99% on RA Pupils equal reactive to light sclera anicteric Lungs clear CV regular rate rhythm and less tachy Abdomen is soft G-tube in place and ileostomy functioning Extremities without edema distal pulses 2+ and warm today Neuro alert cooperative no focal focal deficits Objective Data Vital Signs Vital Signs: Vital Signs - 24 hr 05/23/19 19:23 05/23/19 22:00 05/24/19 02:05 Temperature 36.4 C 36.5 C Pulse Rate 90 76 97 Respiratory Rate 18 16 16 Blood Pressure 105/67 101/68 Pulse Oximetry 97 97 93 05/24/19 06:00 05/24/19 07:32 05/24/19 08:28 Temperature 36.8 C Pulse Rate 96 96 96 Respiratory Rate 16 18 Blood Pressure 103/71 Pulse Oximetry 99 93 05/24/19 10:00 05/24/19 14:00 Temperature 36.5 C 36.9 C Pulse Rate 102 H 93 Respiratory Rate 18 18 Blood Pressure 104/66 106/64 Pulse Oximetry 99 98 Intake/Output Intake/Output: Intake & Output 05/21/19 05/22/19 05/23/19 05/24/19 23:59 23:59 23:59 23:59 Intake Total 3890 2550 1020 970 Output Total 1400 1875 2400 600 Balance 2490 675 -1380 370 Meds/Results Medications: Active Medications Generic Name Dose Route Start Last Admin Trade Name Freq PRN Reason Stop Dose Admin Hydrocodone Bitart/Acetaminophen 1 tab 05/19/19 13:19 05/21/19 00:53 [place] 7.5-325 Mg PO 1 tab
[2019-05-24 17:16] LABS: Glucose Point of Care 133 (65-105)
[2019-05-24] MEDS: ENOXAPARIN 40 MG/0.4 ML SYRINGE SUB-Q (20:22)
[2019-05-24] MEDS: ROSUVASTATIN 10 MG TABLET 40 MG PO (20:23)
[2019-05-24 22:19] LABS: Glucose Point of Care 237 (65-105)
[2019-05-25 02:00] VITALS: BP 104/75; PULSE 99; RESP 18; TEMP 36.3; O2SAT 100
[2019-05-25 05:56] LABS: Hematocrit 32.8 % (42.0-52.0); Hemoglobin 10.9 g/dL (14.0-18.0); Mean Corpuscular HGB Conc 33.2 g/dl (32-36); Mean Corpuscular Hemoglobin 27.3 pg (26-34); Mean Platelet Volume 10.7 fl (7.4-10.4); Platelet Count Result 515 k/mm3 (150-375); Red Cell Distribution Width 14.9 % (11.5-14.5); White Blood Count 14.5 K/mm3 (4.5-10.0)
[2019-05-25 06:00] VITALS: BP 111/74; PULSE 91; RESP 18; TEMP 36.4; O2SAT 98
[2019-05-25 06:29] LABS: Band Neutrophils Percent 3 % (0-6); Eosinophils Absolute Manual 0.43 K/mm3 (0.02-0.5); Eosinophils Percent Manual 3 % (0-4); Hypochromasia 3+ (NORMAL); Lymphocytes Absolute Manual 2.32 K/mm3 (1.1-4.5); Metamyelocytes Percent 4 %; Monocytes Absolute Manual 1.59 K/mm3 (0.1-0.90); Monocytes Percent Manual 11 % (3-9); Neutrophils Absolute Manual 9.57 K/mm3 (1.3-6.7); Neutrophils Percent Manual 63 % (46-73); Platelet Estimate Increased (Adequate); Stomatocytes 1+ (NORMAL); Target Cells 1+ (NORMAL); Total Cells Counted 100
[2019-05-25 08:07] VITALS: PULSE 91
[2019-05-25] MEDS: ASPIRIN 81 MG ENTERIC TABLET PO (08:07)
[2019-05-25] MEDS: AMIODARONE HCL 200 MG TABLET PO (08:07)
[2019-05-25] MEDS: FUROSEMIDE 20 MG TABLET PO (08:08)
[2019-05-25] MEDS: POTASSIUM CHLORIDE 10 MEQ TABLET.ER PO (08:08)
[2019-05-25] MEDS: ALBUTEROL SULFATE (*SP) AEROSOL 1 PUFF 2 PUFF INHALATION (08:18)
[2019-05-25 09:54] LABS: Glucose Point of Care 101 (65-105)
[2019-05-25 09:59] VITALS: BP 109/69; PULSE 91; RESP 18; TEMP 36.3; O2SAT 100
--- NOTE | 2019-05-26 15:53 | PM.DS ---
DS: Diagnosis Admitting Diagnosis Admitting Diagnosis: Acute respiratory failure with hypoxia Discharge Diagnosis (1) Acute respiratory failure with hypoxemia: Code(s): J96.01 - Acute respiratory failure with hypoxia Status: Acute Assessment and Plan: Probably on the basis of COPD and/or sepsis. CT chest showed no emboli or definite infiltrate. BNP only in the 500s. Continued updrafts and saturated well on RA and no steroids . Did have mild cough and ceftriaxone was added for UTI . Low O2 sat may have been simply the results of his arterial constriction and poor detection per finger pulse ox.. Repeat oxygen saturation by ABG was much higher. Eighty-two versus 119. Sat 100% RA at discharge (2) Sepsis: Code(s): A41.9 - Sepsis, unspecified organism Status: Acute Assessment and Plan: On the basis of leukocytosis and tachypnea. Urine appears likely source and culture only mixed organisms but marked pyuria and blood cultures growing coli sensitive to ceftriaxone. Had E coli sepsis at recent hospitalization thought to be GI source then. Lactic acid normal completed 7d of IV antibiotics and will have 7 more days of cefdenir 300 bid WBC not much change and could be secondary to his tumor load (3) Urinary tract infection: Code(s): N39.0 - Urinary tract infection, site not specified Status: Acute Assessment and Plan: Marked pyuria on UA, urine mixed organisms and ceftriaxone started, blood culture growing E coli sensitive to ceftriaxone (4) Malnutrition: Code(s): E46 - Unspecified protein-calorie malnutrition Status: Acute Assessment and Plan: Continue tube feedings and oral feedings (5) Paroxysmal atrial fibrillation: Code(s): I48.0 - Paroxysmal atrial fibrillation Status: Acute Assessment and Plan: Sinus rhythm while inpatient will continue amiodarone. Not a good candidate for anticoagulation which was never started DS: Summary Hospital Course Hospital Course: 63 y/o Black male with hx of metastatic colon ca and recent colon resection admitted with sepsis and respiratory failure on basis of copd and UTI. BC grew Ecoli and received 7 days of IV ceftriaxone and will have 7 days of cefdinir 300 bid for total of 14 days rx. Remains on tube feedings with oral feedings. Will return to oncologist in near future persistent elevated wbc thought secondary to tumor load. back to [facility] for continued rehabilatation. Time Spent with Patient Time attestation: Total time spent providing and/or coordinating discharge services:35 minutes Exam Narrative: Exam Narrative: condition on discharge BP 110/70 P 90 afebrile with 02 sat of 100% Lungs clear Cv rrr with no murmer Abd soft with G tube and ostomy extrem no edema Neuro alert and orienty , up to chair with assistance Discharge Plan Discharge Attending physician on discharge: Wayne Louis Consulting providers: Nitesh Camp ; Malcolm Smith V. ; Raymundo Ibarra Discharging Clinician: Wayne Louis Patient Disposition: SNF Activity: as tolerated Diet: regular and tube feeding Stand Alone Forms: General Discharge Information Follow-up/Referrals: [facility] [[facility]] - 1 Week Discharge Medications: New cefdinir 300 mg capsule 300 mg PO Q12H Qty: 14 RF: 0 Continued albuterol sulfate 2.5 mg /3 mL (0.083 %) Solution For Nebulization 2.5 mg INHALATION Q6H RF: 0 amiodarone 200 mg Tablet 200 mg PO BID RF: 0 potassium chloride [Klor-Con 10] 10 mEq Tablet Extended Release 10 meq PO DAILY RF: 0 aspirin [Aspirin Low Dose] 81 mg Tablet,Delayed Release (Dr/Ec) 81 mg PO DAILY RF: 0 furosemide 20 mg Tablet 20 mg PO DAILY RF: 0 lisinopril 2.5 mg Tablet 2.5 mg PO DAILY RF: 0 rosuvastatin 40 mg Tablet 40 mg PO HS RF: 0 hydrocodone-acetaminophen 7.5-325 mg Tablet 1 tablet PO Q6H PRN (
== END 2019-05-25 12:50 | DRG 720 ==
LOC: ANHED 11:04 → ANH3MEDSUR 11:29
PROVIDERS: Admitting Provider Internal Medicine; Emergency Provider General Practice; Visit Provider Internal Medicine
DX: A41.51 Sepsis due to Escherichia coli [E. coli] (principal); N39.0 Urinary tract infection, site not specified; Z90.49 Acquired absence of other specified parts of digestive tract; Z85.038 Personal history of other malignant neoplasm of large intestine; J44.1 Chronic obstructive pulmonary disease with (acute) exacerbation; I48.0 Paroxysmal atrial fibrillation; Z87.891 Personal history of nicotine dependence; J96.01 Acute respiratory failure with hypoxia; E46 Unspecified protein-calorie malnutrition; Z68.1 Body mass index [BMI] 19.9 or less, adult; Z93.1 Gastrostomy status; C20 Malignant neoplasm of rectum; Z03.818 Encounter for observation for suspected exposure to other biological agents ruled out
CPT/HCPCS: 36415; 36600; 71045; 71275; 80048; 80053; 81001; 82375; 82805; 83050; 83605; 83735; 83880; 85025; 85610; 85730; 87040; 87077; 87086; 87088; 87186; 87804; 93005; 94640; 96361; 96365; 96372; 97110; 97161; 97166; 97530; 99285; A9270; G0378; G0379; J0696; J1650; J2930; J7030; J7120; Q9967

== ENCOUNTER 2019-06-08 19:55 | Inpatient (IN) | payer OTHER, SELFPAY ==
--- NOTE | ~2019-06-08 | MR_ITS ---
EXAMINATION: MR brain/brain stem wo/w con DATE: 06/12/2019 09:36 INDICATION: Stroke versus metastatic disease TECHNIQUE: Magnetic resonance imaging (MRI) of the brain and brainstem was performed without and with 10 mL Multihance intravenous contrast. Sequences included sagittal and axial T1-weighted SE, axial d iffusion-weighted FS SE, axial T2*-weighted GRE, axial T2-weighted FLAIR, and axial T2-weighted FSE. Postcontrast axial and coronal T1-weighted SE was obtained. Apparent diffusion coefficient (ADC) maps were created. COMPARISON: None. FINDINGS: There are no areas of restricted diffusion to suggest acute infarction. There are multiple small site of encephalomalacia consistent with chronic infarcts scattered in the bilateral cerebellar hemispher es, the bilateral frontal lobes and left parietal lobe. No intracranial hemorrhage or abnormal intrac ranial mass lesion. Instantly noted developmental venous anomaly in the left cerebellar hemisphere. T here are scattered areas of nonspecific increased T2-weighted signal intensity in the cerebral white matter, predominantly involving the deep and periventricular white matter. There are no intraparenchy mal signal abnormalities seen on the other pulse sequences. The ventricles are symmetric and normal i n size. There are no abnormal extra-axial fluid collections. Flow voids are seen in the cerebral dewayne abby on the T2-weighted sequences consistent with their expected patency. Visualized orbits and soft tissues are unremarkable. Mild mucoperiosteal thickening throughout the paranasal sinuses with mucous retention cyst in the right maxillary sinus. There are no areas of abnormal enhancement on the post contrast images. IMPRESSION: 1. 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 No acute intracranial process or abnormally enhancing lesions to suggest metastati c disease. Reviewed, dictated and finalized at location A. IMPRESSION: 1. 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 No acute intracranial process or abnor mara enhancing lesions to suggest metastatic disease.
--- NOTE | ~2019-06-08 | XR_ITS ---
EXAMINATION: XR chest 1V portable EXAM DATE: 06/08/2019 21:38 INDICATION: Elevated white blood cell count. TECHNIQUE: Portable AP frontal chest x-ray was obtained. Comparison is made to prior examination from 05/19/2019. FINDINGS: Some regions of linear perihilar scarring and change. The lungs are otherwise clear. There are no pleural effusions. The cardiomediastinal silhouette is within normal limits. There is no pn eumothorax suspected. The bones and soft tissues are unremarkable. IMPRESSION: No acute cardiopulmonary findings. Reviewed, dictated and finalized at location A.
--- NOTE | ~2019-06-08 | XR_ITS ---
MODIFIED ESOPHAGRAM HISTORY: Dysphagia. TECHNIQUE: Modified barium esophagram was performed on 06/12/2019. I administered fluoroscopy and perfo rmed the exam with speech pathologist. Patient was seated for lateral fluoroscopic imaging for inges tion of thin liquids, pudding, solids and quantified amounts, followed by thin liquids in uncontrolle d amounts. This was recorded on tape. A single fluoroscopic spot image was also recorded. The DAP for this procedure was 1.6 Gycm2. The amount of fluoroscopy time used during this procedure was 2.6 jayy rhea. FINDINGS: Oral stage: Adequate function. Pharyngeal stage: Adequate function. Cervical/esophageal stage: Adequate function. IMPRESSION: Patient tolerated regular consistency oral feedings in the upright position. Please som elate with speech pathologist findings and specific feeding recommendations. Reviewed, dictated and finalized at location A. IMPRESSION: Patient tolerated regular consistency oral feedings in the upright position. Please correlate with speech pathologist findings and specific feedi ng recommendations.
--- NOTE | ~2019-06-08 | CT_ITS ---
EXAMINATION: CT abdomen pelvis w con DATE: 06/11/2019 14:49 INDICATION: Fistula. Crampy abdomen. Leukocytosis. Colostomy right abdomen. TECHNIQUE: Computed tomography (CT) of the abdomen and pelvis was performed with 100 cc Omnipaque 350 intravenous contrast. The dose-length product was 329.39 mGy-cm. Automated exposure control and iter ative reconstruction technique were employed. COMPARISON: None. FINDINGS: Small bilateral pleural effusions. Bilateral lower lobe airspace disease, most likely depen dent atelectasis. Superimposed pneumonia not excluded. There is a G-tube in expected position. There is a right lower quadrant colostomy. The liver, spleen, pancreas, adrenal glands and kidneys are unremarkable. The sigmoid colon is signif icantly dilated and complains complex internal soft tissue and fluid, suspicious for malignancy. Ther e is a large amount of fluid/soft tissue surrounding the distal colon and rectum, suspicious for proc tocolitis. Bladder wall is mildly thickened. There is generalized demineralization of the bone. No ac munira osseous abnormality. IMPRESSION: 1. Dilated sigmoid colon with complex internal soft tissue and fluid, suspicious for residual/recurre nt malignancy. Large amount of surrounding soft tissue/inflammatory change are identified surrounding the distal sigmoid colon and rectum, suspicious for proctocolitis. No drainable abscess is identifie d. 2: Small bilateral pleural effusions with underlying airspace disease which may represent dependent atelectasis or pneumonia. Reviewed, dictated and finalized at location A. IMPRESSION: 1. Dilated sigmoid colon with complex internal soft tissue and fluid, suspiciou s for residual/recurrent malignancy. Large amount of surrounding soft tissue/in flammatory change are identified surrounding the distal sigmoid colon and rectu m, suspicious for proctocolitis. No drainable abscess is identified. 2: Small bilateral pleural effusions with underlying airspace disease which ma y represent dependent atelectasis or pneumonia.
[2019-06-08 19:49] VITALS: BP 86/57; PULSE 82; RESP 20; O2SAT 94
[2019-06-08 19:59] VITALS: RESP 20; O2SAT 100
[2019-06-08 20:19] LABS: Basophils Absolute Auto 0.1 K/mm3 (0.0-0.1); Basophils Percent Auto 0.3 % (0.2-1.2); Eosinophils Absolute Auto 0.2 K/mm3 (0-0.3); Hematocrit 30.8 % (42.0-52.0); Hemoglobin 10.5 g/dL (14.0-18.0); Immature Granulocyte Absolute 0.43 K/mm3 (0.00-0.031); Immature Granulocyte Percent A 2.1 % (0-0.5); Lymphocytes Absolute Auto 1.25 K/mm3 (0.9-3.2); Lymphocytes Percent Auto 6.2 % (18.3-44.2); Mean Corpuscular HGB Conc 34.1 g/dl (32-36); Mean Corpuscular Hemoglobin 27.4 pg (26-34); Mean Corpuscular Volume 80.4 fl (80-100); Mean Platelet Volume 10.8 fl (7.4-10.4); Monocytes Absolute Auto 1.1 K/mm3 (0.1-0.6); Monocytes Percent Auto 5.7 % (2.6-8.5); Neutrophils Absolute Auto 17.1 K/mm3 (1.3-6.7); Neutrophils Percent Auto 84.7 % (45.5-73.1); Platelet Count Result 498 k/mm3 (150-375); Red Blood Count 3.83 M/mm3 (4.6-6.20); White Blood Count 20.2 K/mm3 (4.5-10.0)
[2019-06-08] MEDS: SODIUM CHLORIDE 0.9% IV 1,000 ML 999 ML IV CONT (20:25)
[2019-06-08 20:30] LABS: Alanine Aminotransferase 133 U/L (4-50); Albumin Level 3.4 g/dL (3.5-5.1); Alkaline Phosphatase 445 U/L (38-126); Aspartate Amino Transferase 89 U/L (17-59); Bilirubin,Total 0.4 mg/dL (0.2-1.3); Blood Urea Nitrogen 78 mg/dL (9-20); Calcium 9.3 mg/dL (8.4-10.2); Carbon Dioxide 24 mmol/L (22-30); Chloride 95 mmol/L (98-107); Estimated CRCL calculation 46 ml/min; Estimated Glomerular Filt Rate > 60; Glucose 116 mg/dL (75-110); Potassium 5.9 mmol/L (3.4-5.0); Sodium 127 mmol/L (137-145)
[2019-06-08 20:30] LABS: Prothrombin Time 12.8 Seconds (11.1-14.7)
[2019-06-08 20:31] LABS: Platelet Estimate Increased (Adequate); Target Cells 1+ (NORMAL)
[2019-06-08 20:31] LABS: Magnesium 2.5 mg/dL (1.6-2.3); Partial Thromboplastin Time 24.1 SECONDS (22.3-36.8)
[2019-06-08 20:32] LABS: Stomatocytes 1+ (NORMAL)
--- NOTE | 2019-06-08 20:32 | ED.GENADULT ---
HPI - General Adult General Chief complaint: Recheck/Abnormal Lab/Rx Stated complaint: abn labs Time Seen by Provider: 06/08/19 20:11 Source: patient Mode of arrival: EMS History of Present Illness HPI narrative: Pt sent here from the [place] due to abnormal labs, high potassium and low sodium. Pt admits to weakness. Denies cp, sob, abd pain, n/v/d. Related Data Home Medications Medication Instructions Recorded Confirmed albuterol sulfate 2.5 mg INHALATION Q6H 05/19/19 06/09/19 amiodarone 200 mg PO BID 05/19/19 06/09/19 aspirin [Aspirin Low Dose] 81 mg PO DAILY 05/19/19 06/09/19 furosemide 20 mg PO DAILY 05/19/19 06/09/19 lisinopril 2.5 mg PO DAILY 05/19/19 06/09/19 potassium chloride [Klor-Con 10] 10 meq PO DAILY 05/19/19 06/09/19 rosuvastatin 40 mg PO HS 05/19/19 06/09/19 Allergies Allergy/AdvReac Type Severity Reaction Status Date / Time No Known Allergies Allergy Verified 06/08/19 20:26 Review of Systems Review of Systems: All systems reviewed & are unremarkable except as noted in HPI and below Constitutional: Constitutional: Denies body ache(s), Denies chills, Denies excessive sweating, Denies fatigue, Denies fever(s), Denies headache(s), Denies lethargy, Denies malaise, Denies weakness and Denies weight loss Eyes: Eyes: Denies blurry vision, Denies change in vision and Denies loss of vision ENT: Denies dizziness, Denies ear discharge, Denies headache(s), Denies lip swelling, Denies epistaxis, Denies nasal congestion, Denies neck pain, Denies throat swelling and Denies tongue swelling Cardiovascular: Cardiovascular: Denies chest pain, Denies chest pain at rest, Denies chest pain with activity, Denies diaphoresis, Denies rapid heart rate, Denies edema, Denies irregular heart rhythm, Denies lightheadedness, Denies palpitations, Denies dyspnea and Denies dyspnea on exertion Respiratory: Respiratory: Denies chest congestion, Denies cough, Denies hemoptysis, Denies dyspnea and Denies dyspnea on exertion Gastrointestinal: Gastrointestinal: Denies abdominal pain, Denies melena, Denies hematochezia, Denies diarrhea, Denies nausea, Denies vomiting and Denies hematemesis Musculoskeletal: Musculoskeletal: Denies abnormal gait, Denies deformity, Denies joint swelling, Denies limited range of motion, Denies neck pain and Denies numbness Neurologic: Denies Abnormal speech present, Denies abnormal gait, Denies confusion, Denies dizziness, Denies headache(s), Denies focal weakness, Denies loss of vision, Denies numbness, Denies Other visual disturbances, Denies Sensory deficit (Neuro) and Reports weakness Psychiatric: Psychiatric: Denies confusion, Denies depression, Denies auditory hallucinations, Denies homicidal ideation and Denies suicidal ideation Endocrine: Endocrine: Denies cold intolerance, Denies excessive sweating, Denies fatigue, Denies heat intolerance and Denies palpitations Hematologic/Lymphatic: Hematologic/Lymphatic: Denies easy bleeding and Denies easy bruising Allergic/Immunologic: Allergic/Immunologic: Denies lip swelling, Denies throat swelling and Denies tongue swelling PMFSH Past Medical History Medical History Acute respiratory failure Adenocarcinoma Bowel obstruction Colon cancer Dysphagia Gastrointestinal tube present Hypokalemia Paroxysmal atrial fibrillation Ventricular tachycardia Surgical History Surgical History History of bowel resection History of colon surgery History of ileostomy History of right hemicolectomy Family History Family History Father , probable cardiac disease age in 60s Heart disease Mother , natural causes age 79 No problems noted. Social History Social History Smoking status: Former smoker Tobacco type: cigarettes Smoking end date: 05/18/73
[2019-06-08 20:42] VITALS: BP 88/52; PULSE 79; RESP 14; O2SAT 94
[2019-06-08 21:30] VITALS: BP 86/59; PULSE 84; RESP 22; O2SAT 94
[2019-06-08 22:03] VITALS: BP 86/53; PULSE 78; RESP 19; TEMP 35.8; O2SAT 94
[2019-06-08 22:06] LABS: Lactic Acid Reflex 1.8 mmol/L (0.7-2.1)
[2019-06-08 22:06] LABS: Add Urine Microscopic? YES; Appearance Urine Turbid (Clear); Bacteria Urine 4+ /hpf; Bilirubin Urine Negative (Negative); Blood Urine 1+ (Negative); Color Urine Yellow (Yellow); Glucose Urine UA Negative (Negative); Hyaline Casts Urine 20-29 /lpf; Ketones Urine Negative (Negative); Leukocyte Esterase Ur 3+ LEU/UL (Negative); Nitrate Urine Negative (Negative); Protein Urine 1+ mg/dL (Negative); RBC Urine 21-50 /hpf (0-2); Specific Grav Ur 1.012 (1.001-1.035); Urobilinogen Urine Negative mg/dL (<2.0); WBC Clumps Urine Present /HPF; WBC Urine >75 /hpf
[2019-06-08] MEDS: LACTATED RINGERS 1,000 ML 999 ML IV CONT (22:21)
[2019-06-08] MEDS: DEXTROSE 50% 25 GM/50 ML SYRINGE IV PUSH (22:32)
[2019-06-08] MEDS: INSULIN HUMAN REGULAR (*BKC) 100 UNITS/ML 10 UNITS IV PUSH (22:32)
[2019-06-08 22:54] VITALS: BP 90/63; PULSE 69; RESP 18; O2SAT 93
--- NOTE | 2019-06-08 23:19 | PC.NURSE ---
Addendum entered by Rickey Morris RN 06/09/19 00:03: Correction: peripheral vasopressors Original Note: EDP Jauregui in room with patient explaining central line procedure when patient refused central line placement. Patient states he does not want any central line placed at this time. Patient is alert and oriented. Per EDP Shania, peripheral pressures are to be started.
[2019-06-09] VITALS (16 sets, daily range): BP systolic 73–135; BP diastolic 50–70; PULSE 62–93; RESP 14–24; TEMP 36.4–38.1; O2SAT 93–100; BMI 18.6
[2019-06-09] MEDS: NOREPINEPHRINE 8 MG/D5W 250 ML 8 MG/250 ML BAG 13.1 MG IV CONT (00:09)
--- NOTE | 2019-06-09 01:39 | PM.IMHP ---
H&P: HPI History of Present Illness Chief complaint: SEPSIS, SEPTIC SHOCK Narrative: This is a 63 year old male s/p colon cancer w/ colostomy and PEG placement well known to our Hospitalist service recently from another admission for sepsis who presented to the hospital from the halfway secondary to abnormal labs today. The patient recently had E coli sepsis thought to be GI source. The patient has not had any complaints tonight other than a sporadic nonproductive cough and was evaluated in the ER. He was found to be in septic shock with an elevated WBC of 20,200, a grossly abnormal urinalysis, and hypotension that did not respond to IV fluid boluses. The patient refused a central line placement even though he was advised multiple times that he may risk losing a limb secondary to peripheral vasopressor use and the patient has accepted this risk as he refuses a central line being placed. The patient has been started on Ceftriaxone and Levophed IV. On my encounter with the patient he denies any other complaints tonight. While in the ER tonight the patient was tested for novel COVID-19 viral infection. Review of Systems Review of Systems: All systems reviewed & are unremarkable except as noted in HPI and below PMFSH Past Medical History Medical History Acute respiratory failure Adenocarcinoma Bowel obstruction Colon cancer Dysphagia Gastrointestinal tube present Hypokalemia Paroxysmal atrial fibrillation Ventricular tachycardia Surgical History Surgical History History of bowel resection History of colon surgery History of ileostomy History of right hemicolectomy Family History Family History Father , probable cardiac disease age in 60s Heart disease Mother , natural causes age 79 No problems noted. 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 Gender identity (if verbalized by the patient): Male Spiritual care concerns: No Agree to blood products: Yes Meds Home Medications and Allergies Home Medications Medication Instructions Recorded Confirmed Type albuterol sulfate 2.5 mg INHALATION Q6H 05/19/19 06/09/19 History amiodarone 200 mg PO BID 05/19/19 06/09/19 History aspirin [Aspirin Low Dose] 81 mg PO DAILY 05/19/19 06/09/19 History furosemide 20 mg PO DAILY 05/19/19 06/09/19 History lisinopril 2.5 mg PO DAILY 05/19/19 06/09/19 History potassium chloride [Klor-Con 10] 10 meq PO DAILY 05/19/19 06/09/19 History rosuvastatin 40 mg PO HS 05/19/19 06/09/19 History cefdinir 300 mg PO Q12H #14 cap 05/25/19 06/09/19 Rx hydrocodone-acetaminophen 1 tablet PO Q6H PRN #15 tablet 05/25/19 06/09/19 Rx Allergies Allergy/AdvReac Type Severity Reaction Status Date / Time No Known Allergies Allergy Verified 06/08/19 20:26 Vital Signs Vital Signs - 24 hr 06/08/19 19:49 06/08/19 19:59 06/08/19 20:42 Temperature Pulse Rate 82 79 Respiratory Rate 20 20 14 Blood Pressure 86/57 L 88/52 L Pulse Oximetry 94 100 94 06/08/19 21:30 06/08/19 22:03 06/08/19 22:54 Temperature 35.8 C L Pulse Rate 84 78 69 Respiratory Rate 22 H 19 18 Blood Pressure 86/59 L 86/53 L 90/63 L Pulse Oximetry 94 94 93 06/09/19 00:19 06/09/19 00:45 06/09/19 01:02 Temperature Pulse Rate 65 66 62 Respiratory Rate 14 14 15 Blood Pressure 82/58 L 90/66 L 112/68 Pulse Oximetry 93 94 94 Exam Const: General: cooperative, no acut
[2019-06-09] MEDS: SODIUM CHLORIDE 0.9% IV 1,000 ML 125 ML IV CONT ×3 (02:05→21:07)
--- NOTE | 2019-06-09 02:43 | ADMGEN ---
This patient, Guanakito Anderson, was admitted to Intensive Care Unit-1. Patient/family oriented to hospital policies and general routines including ID bracelet, bed and alarms, visiting hours, pain management, procedures, bathroom and other care routines, personal items, smoking policy, room service/diet, and visiting hours. Valuables list has been completed. Information on how to activate the Rapid Response Team has been discussed. Patient/Family are encouraged to report perceived risks to care and to ask questions if they do not understand what they are told or what they should do.
[2019-06-09 09:13] LABS: Sodium Urine Random 8 meq/L
--- NOTE | 2019-06-09 10:40 | WPDCNINT ---
Assessment and Plan Assessment and plan (1) Septic shock: Code(s): A41.9 - Sepsis, unspecified organism; R65.21 - Severe sepsis with septic shock Status: Acute Assessment and Plan: secondary to UTI IV fluid bolus and infusion. I will give 1 more L of normal saline urine and blood culture sent IV Rocephin patient is on low-dose Geovanny-Synephrine The patient refused central line placement. I spoke to patient and he is agreeable to a PICC line if it is 'painless and quick'. he agreed only to avoid further IV sticks for lab draws and did not care much about potential side effects of vasopressor administration through peripheral IV lactate has normalized (2) Acute UTI (urinary tract infection): Code(s): N39.0 - Urinary tract infection, site not specified Status: Acute Assessment and Plan: Continue IV Rocephin, Urine culture pending. urine culture on 05/18 was positive for E coli sensitive to Rocephin (3) Suspected 2019 novel coronavirus infection: Code(s): R68.89 - Other general symptoms and signs Status: Acute Assessment and Plan: COVID-19 suspected. SARS-CoV-2 PCR sent and results pending Patient is in Airborne, Droplet and Contact Isolation (4) Chronic anemia: Code(s): D64.9 - Anemia, unspecified Status: Chronic Assessment and Plan: Likely multifactorial including nutritional deficiencies and anemia of chronic disease. No signs of acute blood loss. Monitor H/H, transfuse if less than 7 (5) Hyponatremia: Code(s): E87.1 - Hypo-osmolality and hyponatremia Status: Acute Assessment and Plan: Likely secondary to dehydration. Monitor serum sodium. Continue IV hydration. (6) Transaminitis: Code(s): R74.0 - Nonspecific elevation of levels of transaminase and lactic acid dehydrogenase [LDH] Status: Acute Assessment and Plan: Likely secondary to septic shock and hypoperfusion. Check AST/ALT in am. (7) Acute hyperkalemia: Code(s): E87.5 - Hyperkalemia Status: Acute Assessment and Plan: The patient is on potassium supplements. creatinine is normal patient was given insulin, dextrose I will give a dose of Kayexalate patient was also given IV recheck BMP today Continue telemetry. hold lisinopril, p.o. potassium (8) Paroxysmal atrial fibrillation: Code(s): I48.0 - Paroxysmal atrial fibrillation Status: Chronic Assessment and Plan: Rate controlled. The patient is not a candidate for anticoagulation and has not been on any blood thinners. (9) History of colon cancer: Code(s): Z85.038 - Personal history of other malignant neoplasm of large intestine Status: Chronic Assessment and Plan: s/p ileostomy. Additional Plan DVT prophylaxis - Lovenox Stress ulcer prophylaxis - not indicated Code Status - Full Code Total Critical Care Time - 30 minutes Due to a high probability of clinically significant, life threatening deterioration, the patient required my highest level of preparedness to intervene emergently and I personally spent this critical care time directly and personally managing the patient. This critical care time included obtaining a history; examining the patient; pulse oximetry; ordering and review of studies; arranging urgent treatment with development of a management plan; evaluation of patient's response to treatment; frequent reassessment; and discussions with other providers. It was exclusive of separately billable procedures and treating other patients and teaching time. 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
[2019-06-09] MEDS: LIDOCAINE HCL 1% PF INJ 5 ML VIAL INFILTRATE (13:15)
--- NOTE | 2019-06-09 13:21 | PM.IMPN ---
Progress Note: A&P Assessment and Plan (1) Septic shock: Code(s): A41.9 - Sepsis, unspecified organism; R65.21 - Severe sepsis with septic shock Status: Acute Assessment and Plan: Patient presents with septic shock not responsive to IV fluid boluses, leukocytosis and abnormal urinalysis consistent with UTI. Source of sepsis appears to be urinary. Blood and urine cultures pending. The patient has refused central line placement. He was switched from IV levophed to IV neosynephrine for vasopressor support. PICC line being placed. Continue IV hydration. Monitor vital signs and urine output closely. Discussed with leather cleaner. Appreciate leather cleaner input. (2) Acute UTI (urinary tract infection): Code(s): N39.0 - Urinary tract infection, site not specified Status: Acute Assessment and Plan: UA noted. Urine culture pending. Continue IV antibiotics. (3) Suspected 2019 novel coronavirus infection: Code(s): R68.89 - Other general symptoms and signs Status: Acute Assessment and Plan: The patient has been tested for novel COVID-19 viral illness. Testing results pending. Continue supportive care. Continue contact isolation. COVID negative (4) Leukocytosis: Qualifiers: Leukocytosis type: unspecified Qualified Code(s): D72.829 - Elevated white blood cell count, unspecified Code(s): D72.829 - Elevated white blood cell count, unspecified Status: Acute Assessment and Plan: Secondary to septic shock and likely UTI - Monitor CBC. Repeat labs pending. WBC 27K now. (5) Chronic anemia: Code(s): D64.9 - Anemia, unspecified Status: Chronic Assessment and Plan: Likely multifactorial including nutritional deficiencies and anemia of chronic disease. No signs of acute blood loss. Monitor H/H, transfuse prn. Hgb dropped to 8.9 possibly related to IVF. Contineu to follow. Transfuse as needed. (6) Hyponatremia: Code(s): E87.1 - Hypo-osmolality and hyponatremia Status: Acute Assessment and Plan: Likely secondary to dehydration. Monitor serum sodium. Fluid restricted diet. Continue IV hydration. Urine sodium 8. Repeat labs pending. Na better at 131. (7) Transaminitis: Code(s): R74.0 - Nonspecific elevation of levels of transaminase and lactic acid dehydrogenase [LDH] Status: Acute Assessment and Plan: AST 89 and ALT 133 on admission. Alk-phos also elevated at 445. Likely secondary to septic shock and hypoperfusion. Continue to monitor for now. Further workup if enzymes to not improved AST 55 and ALT 91 now. (8) Acute hyperkalemia: Code(s): E87.5 - Hyperkalemia Status: Acute Assessment and Plan: Potassium was 5.9 on admission. Repeat labs unable to be obtained because patient has poor IV access. Cortisol level ordered. The patient was on potassium supplements and these have been stopped. Continue to monitor closely. Repeat potassium 5.9. Kayexalate given. Repeat potassium again tonight. (9) Paroxysmal atrial fibrillation: Code(s): I48.0 - Paroxysmal atrial fibrillation Status: Chronic Assessment and Plan: Telemetry showing normal sinus rhythm. The patient is not a candidate for anticoagulation and has not been on any blood thinners. Was on amiodarone on admission. This is on hold. Resume when able. (10) Malnutrition: Qualifiers: Malnutrition type: protein-calorie malnutrition Protein-calorie malnutrition severity: moderate Qualified Code(s): E44.0 - Moderate protein-calorie malnutrition Code(s): E46 - Unspecified protein-calorie malnutrition Status: Chronic Assessment and Plan: Patient has PEG tube in place. Resume tube feeds when appropriate. (11) History of colon cancer: Code(s): Z85.038 - Personal history of other malignant neoplasm of large intestine Statu
[2019-06-09] MEDS: SODIUM CHLORIDE 0.9% IV 1,000 ML 999 ML IV CONT (14:00)
[2019-06-09] MEDS: SODIUM POLYSTYRENE SULFONONATE 15 GM/60 ML BTL 30 GM PO (14:00)
[2019-06-09 14:10] LABS: Basophils Absolute Auto 0.1 K/mm3 (0.0-0.1); Basophils Percent Auto 0.4 % (0.2-1.2); Eosinophils Absolute Auto 0.1 K/mm3 (0-0.3); Eosinophils Percent Auto 0.2 % (0-4.4); Hematocrit 26.1 % (42.0-52.0); Hemoglobin 8.9 g/dL (14.0-18.0); Immature Granulocyte Absolute 0.56 K/mm3 (0.00-0.031); Lymphocytes Absolute Auto 0.54 K/mm3 (0.9-3.2); Lymphocytes Percent Auto 1.9 % (18.3-44.2); Mean Corpuscular HGB Conc 34.1 g/dl (32-36); Mean Corpuscular Hemoglobin 27.4 pg (26-34); Mean Corpuscular Volume 80.3 fl (80-100); Mean Platelet Volume 10.8 fl (7.4-10.4); Monocytes Absolute Auto 1.5 K/mm3 (0.1-0.6); Monocytes Percent Auto 5.5 % (2.6-8.5); Platelet Count Result 416 k/mm3 (150-375); Red Blood Count 3.25 M/mm3 (4.6-6.20); Red Cell Distribution Width 15.1 % (11.5-14.5); White Blood Count 27.8 K/mm3 (4.5-10.0)
[2019-06-09 14:24] LABS: Alanine Aminotransferase 91 U/L (4-50); Aspartate Amino Transferase 55 U/L (17-59); Blood Urea Nitrogen 46 mg/dL (9-20); Carbon Dioxide 19 mmol/L (22-30); Chloride 107 mmol/L (98-107); Estimated CRCL calculation 95 ml/min; Estimated Glomerular Filt Rate > 60; Glucose 93 mg/dL (75-110); Potassium 5.9 mmol/L (3.4-5.0); Sodium 131 mmol/L (137-145)
[2019-06-09 14:31] LABS: SARS-CoV-2 RNA PCR Negative
[2019-06-09 14:47] LABS: Platelet Estimate Increased (Adequate); Target Cells 1+ (NORMAL)
[2019-06-09 20:24] LABS: Potassium 4.7 mmol/L (3.4-5.0)
[2019-06-10] VITALS (19 sets, daily range): BP systolic 80–98; BP diastolic 55–65; PULSE 72–91; RESP 13–27; TEMP 36.5–37.1; O2SAT 95–100
[2019-06-10 04:51] LABS: Basophils Absolute Auto 0.1 K/mm3 (0.0-0.1); Basophils Percent Auto 0.4 % (0.2-1.2); Eosinophils Absolute Auto 0.3 K/mm3 (0-0.3); Eosinophils Percent Auto 1.3 % (0-4.4); Hematocrit 23.3 % (42.0-52.0); Immature Granulocyte Absolute 0.57 K/mm3 (0.00-0.031); Immature Granulocyte Percent A 2.7 % (0-0.5); Lymphocytes Absolute Auto 1.05 K/mm3 (0.9-3.2); Lymphocytes Percent Auto 4.9 % (18.3-44.2); Mean Corpuscular HGB Conc 34.3 g/dl (32-36); Mean Corpuscular Hemoglobin 27.8 pg (26-34); Mean Corpuscular Volume 80.9 fl (80-100); Mean Platelet Volume 10.6 fl (7.4-10.4); Monocytes Absolute Auto 1.8 K/mm3 (0.1-0.6); Monocytes Percent Auto 8.5 % (2.6-8.5); Neutrophils Absolute Auto 17.6 K/mm3 (1.3-6.7); Neutrophils Percent Auto 82.2 % (45.5-73.1); Platelet Count Result 355 k/mm3 (150-375); Red Blood Count 2.88 M/mm3 (4.6-6.20); Red Cell Distribution Width 15.2 % (11.5-14.5); White Blood Count 21.4 K/mm3 (4.5-10.0)
[2019-06-10] MEDS: SODIUM CHLORIDE 0.9% IV 1,000 ML 125 ML IV CONT (06:06)
[2019-06-10 06:36] LABS: Platelet Estimate Adequate (Adequate)
[2019-06-10 06:38] LABS: Alanine Aminotransferase 75 U/L (4-50); Alkaline Phosphatase 299 U/L (38-126); Aspartate Amino Transferase 47 U/L (17-59); Bilirubin,Total 0.3 mg/dL (0.2-1.3); Blood Urea Nitrogen 27 mg/dL (9-20); Carbon Dioxide 20 mmol/L (22-30); Chloride 110 mmol/L (98-107); Estimated CRCL calculation 99 ml/min; Estimated Glomerular Filt Rate > 60; Glucose 106 mg/dL (75-110); Hypochromasia 2+ (NORMAL); Magnesium 1.8 mg/dL (1.6-2.3); Poikilocytosis 1+ (NORMAL); Potassium 4.1 mmol/L (3.4-5.0); Sodium 134 mmol/L (137-145); Target Cells 1+ (NORMAL)
[2019-06-10 06:48] LABS: Albumin Level 2.3 g/dL (3.5-5.1)
--- NOTE | 2019-06-10 07:00 | WPDINTPN ---
Progress Note: A&P Assessment and Plan (1) Septic shock: Code(s): A41.9 - Sepsis, unspecified organism; R65.21 - Severe sepsis with septic shock Status: Acute Assessment and Plan: secondary to UTI IV fluid bolus and infusion. blood cultures negative urine culture is growing Klebsiella aerogenes/ Enterobacter change IV Rocephin to IV Levaquin based on sensitivities patient is on low-dose Geovanny-Synephrine. will try to wean off The patient refused central line placement yesterday to multiple physicians hence PICC line was placed as patient was poor IV access. v lactate has normalized (2) Acute UTI (urinary tract infection): Code(s): N39.0 - Urinary tract infection, site not specified Status: Acute Assessment and Plan: see above (3) Suspected 2019 novel coronavirus infection: Code(s): R68.89 - Other general symptoms and signs Status: Acute Assessment and Plan: COVID-19 ruled out. SARS-CoV-2 PCR was negative Patient was on Airborne, Droplet and Contact Isolation which now has been discontinued. (4) Chronic anemia: Code(s): D64.9 - Anemia, unspecified Status: Chronic Assessment and Plan: Likely multifactorial including nutritional deficiencies and anemia of chronic disease. No signs of acute blood loss. Monitor H/H, transfuse if less than 7 (5) Hyponatremia: Code(s): E87.1 - Hypo-osmolality and hyponatremia Status: Acute Assessment and Plan: Likely secondary to dehydration. Improved with rehydration Monitor serum sodium. Continue IV hydration. (6) Transaminitis: Code(s): R74.0 - Nonspecific elevation of levels of transaminase and lactic acid dehydrogenase [LDH] Status: Acute Assessment and Plan: Likely secondary to septic shock and hypoperfusion. improved monitor (7) Acute hyperkalemia: Code(s): E87.5 - Hyperkalemia Status: Acute Assessment and Plan: The patient is on potassium supplements. creatinine is normal patient was given insulin, dextrose and Kayexalate potassium level normal today Continue telemetry. continue hold lisinopril, p.o. potassium (8) Paroxysmal atrial fibrillation: Code(s): I48.0 - Paroxysmal atrial fibrillation Status: Chronic Assessment and Plan: Rate controlled. The patient is not a candidate for anticoagulation and has not been on any blood thinners. (9) History of colon cancer: Code(s): Z85.038 - Personal history of other malignant neoplasm of large intestine Status: Chronic Assessment and Plan: s/p colostomy (10) Hyperchloremic acidosis: Code(s): E87.2 - Acidosis Status: Acute Assessment and Plan: change IV fluids from normal saline to IVF with bicarb Additional Plan DVT prophylaxis - Lovenox Stress ulcer prophylaxis - not indicated Code Status - Full Code Total Critical Care Time - 31 minutes Due to a high probability of clinically significant, life threatening deterioration, the patient required my highest level of preparedness to intervene emergently and I personally spent this critical care time directly and personally managing the patient. This critical care time included obtaining a history; examining the patient; pulse oximetry; ordering and review of studies; arranging urgent treatment with development of a management plan; evaluation of patient's response to treatment; frequent reassessment; and discussions with other providers. It was exclusive of separately billable procedures and treating other patients and teaching time. Please see Assessment and Plan section and the rest of the note for further information on patient assessment and treatment Subjective Date/time seen: 06/10/19 0700 Overnight events reviewed Afebrile Continues to be on Low-dose phenylephrine PICC line placed as patient has refused central line Vitals acceptable Denies any complaint an
[2019-06-10] MEDS: SODIUM BICARBONATE 8.4% 150 MEQ in WATER, STERILE FOR INJECTION 950 ML 75 MEQ IV CONT (07:49)
[2019-06-10] MEDS: levoFLOXacin 500 MG/D5W 100 ML 500 MG/100 ML BAG 100 MG IVPB (07:51)
[2019-06-10] MEDS: ENOXAPARIN 40 MG/0.4 ML SYRINGE SUB-Q (07:55)
--- NOTE | 2019-06-10 10:32 | PCDIET ---
ICU Rounding Note: MD consult to start tube feedings with plan to continue home tube feeding of Jevity 1.5. Suggested 300mL Jevity 1.5 every 6 hours (vs. previously ordered 375mL every 6 hours) for 1800kcal, 77g protein and 912mL free water. Recommend 30mL water flush after feedings while IV fluids infusing. Last recorded weight is 56.0kg which is increased. +I/O. Bowel Motility: +Ileostomy output. Labs Reviewed: Hgb (8.0), Hct (23.3), BUN (27), Cr (0.50), Alb (2.3) Meds Noted: Levaquin, Phenylephrine, Water with 150mEq NaHCO3 at 75mL/hr Additional Notes: Right abdomen macerated. No other skin issues reported. Following daily in ICU rounds. Assessing/reassessing every Saturday/Saturday.
--- NOTE | 2019-06-10 15:40 | PM.IMPN ---
Progress Note: A&P Assessment and Plan (1) Abdominal wall fistula: Code(s): K63.2 - Fistula of intestine Status: Acute Assessment and Plan: Small ulcer noted yesterday but has remained dry until today when now it appears stool coming from this wound. Will obtain old records from [facility]. General Surgery consult. Will need CT A/P with oral contrast. Add Flagyl. NPO. Place appliance over the lesion for now. Could be the source of the sepsis and from the sepsis last admission. Discussed with General Surgery. (2) Septic shock: Code(s): A41.9 - Sepsis, unspecified organism; R65.21 - Severe sepsis with septic shock Status: Acute Assessment and Plan: Patient presents with septic shock (not responsive to IV fluid boluses), leukocytosis and abnormal urinalysis consistent with UTI. Source of sepsis appears to be urinary but now concern for fistula tract. BCx NGTD; UCx growing Enterobacter. The patient has refused central line placement and so PICC placed. He was on pressor support but able to be weaned off. BP still soft. He is still on IV bicarb. Tube feedings started. WBC better. Continue Levaquin. Will add flagyl. (3) Acute UTI (urinary tract infection): Code(s): N39.0 - Urinary tract infection, site not specified Status: Acute Assessment and Plan: UA noted. Urine culture growing Enterobacter. Continue IV antibiotics. (4) Leukocytosis: Qualifiers: Leukocytosis type: unspecified Qualified Code(s): D72.829 - Elevated white blood cell count, unspecified Code(s): D72.829 - Elevated white blood cell count, unspecified Status: Acute Assessment and Plan: Secondary to septic shock, UTI and fistulous tract. WBC down to 21K (5) Chronic anemia: Code(s): D64.9 - Anemia, unspecified Status: Chronic Assessment and Plan: Hgb 9-10 range last admission. Likely multifactorial including nutritional deficiencies and anemia of chronic disease. No signs of acute blood loss. Hgb dropped to 8.0 today. Continue to monitor. Stop IVF. (6) Hyponatremia: Code(s): E87.1 - Hypo-osmolality and hyponatremia Status: Acute Assessment and Plan: Na 127 on admission. Urine sodium 8. Likely secondary to dehydration. Repeat Na 134 today. (7) Transaminitis: Code(s): R74.0 - Nonspecific elevation of levels of transaminase and lactic acid dehydrogenase [LDH] Status: Acute Assessment and Plan: AST 89 and ALT 133 on admission. Likely secondary to septic shock and hypoperfusion. Repeat levels tending down. Continue to monitor for now. (8) Acute hyperkalemia: Code(s): E87.5 - Hyperkalemia Status: Acute Assessment and Plan: Potassium was 5.9 on admission. Cortisol level mildly elevated but not unexpected. The patient was on potassium supplements and these have been stopped. Potassium 4.1 today. Continue to monitor closely. (9) Paroxysmal atrial fibrillation: Code(s): I48.0 - Paroxysmal atrial fibrillation Status: Chronic Assessment and Plan: EKG showing normal sinus rhythm. Tele showing patient maintaining NSR. The patient is not a candidate for anticoagulation and has not been on any blood thinners. Was on amiodarone on admission. This is on hold. Resume today. (10) Malnutrition: Qualifiers: Malnutrition type: protein-calorie malnutrition Protein-calorie malnutrition severity: moderate Qualified Code(s): E44.0 - Moderate protein-calorie malnutrition Code(s): E46 - Unspecified protein-calorie malnutrition Status: Chronic Assessment and Plan: Patient has PEG tube in place. TF resumed. Have speech therapy see the patient to assess ability to take oral intake. (11) History of colon cancer: Code(s): Z85.038 - Personal history of other malignant neoplasm of large intestine Status: [facility]
--- NOTE | 2019-06-10 17:51 | PC.NURSE ---
This patient, Guanakito Anderson, was transferred to [facility] on 06/10/19 at 1740. Personal belongings sent with patient. Belongings list checked and signed with receiving RN. Report given to self. Appropriate documentation sent with patient.
[2019-06-10] MEDS: metroNIDAZOLE 250MG/ISO 50 ML 250 MG/50 ML BAG 50 MG IVPB ×2 (18:10→23:45)
[2019-06-11] VITALS (16 sets, daily range): BP systolic 90–116; BP diastolic 51–61; PULSE 73–88; RESP 16–20; TEMP 35.9–37; O2SAT 85–100
[2019-06-11] MEDS: SODIUM BICARBONATE 8.4% 150 MEQ in WATER, STERILE FOR INJECTION 950 ML 75 MEQ IV CONT (01:36)
[2019-06-11 04:23] LABS: Osmolality, Urine 312 mOsm/kg (50-1200)
[2019-06-11 05:19] LABS: Hematocrit 22.1 % (42.0-52.0); Hemoglobin 7.7 g/dL (14.0-18.0); Mean Corpuscular HGB Conc 34.8 g/dl (32-36); Mean Corpuscular Hemoglobin 27.6 pg (26-34); Mean Corpuscular Volume 79.2 fl (80-100); Mean Platelet Volume 9.7 fl (7.4-10.4); Platelet Count Result 329 k/mm3 (150-375); Red Blood Count 2.79 M/mm3 (4.6-6.20); Red Cell Distribution Width 14.7 % (11.5-14.5); White Blood Count 15.7 K/mm3 (4.5-10.0)
[2019-06-11 05:34] LABS: Alanine Aminotransferase 55 U/L (4-50); Albumin Level 2.3 g/dL (3.5-5.1); Alkaline Phosphatase 271 U/L (38-126); Aspartate Amino Transferase 34 U/L (17-59); Bilirubin,Total 0.3 mg/dL (0.2-1.3); Blood Urea Nitrogen 16 mg/dL (9-20); Calcium 7.9 mg/dL (8.4-10.2); Carbon Dioxide 27 mmol/L (22-30); Chloride 106 mmol/L (98-107); Estimated CRCL calculation 99 ml/min; Estimated Glomerular Filt Rate > 60; Glucose 81 mg/dL (75-110); Lactic Acid 0.7 mmol/L (0.7-2.1); Magnesium 1.6 mg/dL (1.6-2.3); Phosphorus 3.2 mg/dL (2.5-4.5); Potassium 3.3 mmol/L (3.4-5.0); Sodium 137 mmol/L (137-145)
[2019-06-11] MEDS: metroNIDAZOLE 250MG/ISO 50 ML 250 MG/50 ML BAG 50 MG IVPB ×3 (06:05→17:18)
--- NOTE | 2019-06-11 07:34 | ECG_ITS ---
Measurements Intervals [place] Rate: 77 P: 54 UT: 158 QRS: -55 QRSD: 116 T: 64 QT: 415 QTc: 472 Interpretive Statements SINUS RHYTHM FREQUENT ATRIAL PREMATURE COMPLEXES INCOMPLETE RIGHT BUNDLE BRANCH BLOCK EARLY PRECORDIAL R/S TRANSITION LEFT ANTERIOR FASCICULAR BLOCK NONSPECIFIC ST & T-WAVE ABNORMALITY- LATERAL LEADS BASELINE WANDER- V5-V6 ABNORMAL ECG Electronically Signed On 06-11-2019 9:07:38 CDT by Nitesh Camp D.O.
[2019-06-11] MEDS: MAGNESIUM SULF 2 GM/WATER 50ML 2 GM/50 ML BAG IVPB (07:56)
[2019-06-11] MEDS: KCL 40 MEQ/D5/0.9% SOD CHL 1,000 ML 70 ML IV CONT (07:56)
[2019-06-11] MEDS: levoFLOXacin 500 MG/D5W 100 ML 500 MG/100 ML BAG 100 MG IVPB (08:02)
[2019-06-11] MEDS: ENOXAPARIN 40 MG/0.4 ML SYRINGE SUB-Q (08:02)
--- NOTE | 2019-06-11 12:29 | PM.IMPN ---
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 Old records reviewed. General Surgery consulted and appreciate their input. CT A/P with oral contrast pendig. Contineu Levaquin and Flagyl. NPO. We have placed an appliance over the fistula now. Could be the source of the sepsis and from the sepsis last admission. Discussed with General Surgery. (2) Septic shock: Code(s): A41.9 - Sepsis, unspecified organism; R65.21 - Severe sepsis with septic shock Status: Acute Assessment and Plan: Patient presents with septic shock (not responsive to IV fluid boluses), leukocytosis and abnormal urinalysis consistent with UTI. Source of sepsis appears to be urinary but now concern for mucous fistula tract. BCx NGTD; UCx growing Enterobacter. The patient has refused central line placement and so PICC placed. He was on pressor support but able to be weaned off. BP still soft at times. He is still on IV bicarb but bicarb normal now so hoang change to maintenance fluids. WBC better. Continue Levaquin and flagyl. (3) Acute UTI (urinary tract infection): Code(s): N39.0 - Urinary tract infection, site not specified Status: Acute Assessment and Plan: UA noted. Urine culture growing Enterobacter sensitive to Levaquin. Continue IV antibiotics. (4) Leukocytosis: Qualifiers: Leukocytosis type: unspecified Qualified Code(s): D72.829 - Elevated white blood cell count, unspecified Code(s): D72.829 - Elevated white blood cell count, unspecified Status: Acute Assessment and Plan: Secondary to septic shock, UTI and/or mucous fistulous tract. WBC down to 15.7K today. (5) Chronic anemia: Code(s): D64.9 - Anemia, unspecified Status: Chronic Assessment and Plan: Hgb 9-10 range last admission. Likely multifactorial including nutritional deficiencies and anemia of chronic disease. No signs of acute blood loss. Hgb dropped to 7.7 without clear source. Closer monitoring. Transfuse as needed (6) Hyponatremia: Code(s): E87.1 - Hypo-osmolality and hyponatremia Status: Acute Assessment and Plan: Na 127 on admission. Urine sodium 8. Likely secondary to dehydration. Repeat Na 137 today. On maintenance fluid. (7) Transaminitis: Code(s): R74.0 - Nonspecific elevation of levels of transaminase and lactic acid dehydrogenase [LDH] Status: Acute Assessment and Plan: AST 89 and ALT 133 on admission. Likely secondary to septic shock and hypoperfusion. Repeat levels tending down and are 34 and 55 respectfully. Continue to monitor for now. (8) Acute hyperkalemia: Code(s): E87.5 - Hyperkalemia Status: Acute Assessment and Plan: Potassium was 5.9 on admission. Cortisol level mildly elevated but not unexpected. The patient was on potassium supplements and these have been stopped. Potassium 3.3 today. Replace. Continue to monitor closely. (9) Paroxysmal atrial fibrillation: Code(s): I48.0 - Paroxysmal atrial fibrillation Status: Chronic Assessment and Plan: EKG showing normal sinus rhythm. Tele showing patient maintaining NSR. Echo 04/26 showing EF 30-44% with global hypokinesis and Grade1 distolic dysfunction. The patient is not a candidate for anticoagulation and has not been on any blood thinners. Was on amiodarone on admission but on hold for now. Amio interacts with Levaquin. Will continue to hold for now. Contineu tele. (10) Malnutrition: Qualifiers: Malnutrition type: protein-calorie malnutrition Protein-calorie malnutrition severity: moderate Qualified Code(s): E44.0 - Moderate protein-calorie malnutrition Code(s): E46 - Unspecified p
--- NOTE | 2019-06-11 13:17 | PCOTNOTE ---
OT evaluation attempted. Patient refusing therapy at this time stating they do not feel well and don't feel like doing therapy. Patient continued to refused despite encouragement and therapist explaining benefits of therapy. Will attempt OT evaluation again at later time.
--- NOTE | 2019-06-11 13:21 | PCSTNOTE ---
Order received for a bedside swallow evaluation; ST requested order be changed to MBS versus bedside swallow due to pt's history of dysphagia, current NPO status/having PEG tube. Order was received for the MBS but xray/CT requested to hold MBS due to a CT order and not wanting to have barium in stomach. Dr Ocampo verified that MBS could be completed 06-12-2019.
--- NOTE | 2019-06-11 14:16 | PCPTNOTE ---
Patient refused treatment this session due to trying to get organized , call his sister, and feeling weak.
[2019-06-11 15:10] LABS: Potassium 3.9 mmol/L (3.4-5.0)
[2019-06-11 15:11] LABS: Hematocrit 21.2 % (42.0-52.0); Hemoglobin 7.5 g/dL (14.0-18.0)
--- NOTE | 2019-06-11 15:22 | PM.CNGS ---
Assessment and Plan Assessment and plan (1) Septic shock: Code(s): A41.9 - Sepsis, unspecified organism; R65.21 - Severe sepsis with septic shock Status: Acute Assessment and Plan: improved and out of the intensive care unit. White blood cell count is decreasing. Continue IV antibiotics. Septic shock due to urinary tract infection from Enterobacter. Does not appear to have intra-abdominal infection or abscess. (2) Acute UTI (urinary tract infection): Code(s): N39.0 - Urinary tract infection, site not specified Status: Acute Assessment and Plan: cultures have grown Enterobacter. Responding to antibiotics. Consider possibility of erosion rectal tumor in to urinary bladder. May wish to have Urology see and proceed with cystoscopy. (3) Obstruction of rectum: Code(s): K62.4 - Stenosis of anus and rectum Status: Acute Assessment and Plan: Resulted in cecal perforation and fecal peritonitis 04/11/2019. He emergency surgery was life-saving. Review of surgical records show patient had right colectomy with ileostomy and right upper quadrant mucous fistula. These seem to be working well and require no intervention. I reviewed them with the wound nurses. New ileostomy appliance has been placed. Will dress the mucous fistula with Xeroform gauze and 4 x 4 gauze to be changed daily and p.r.n.. (4) Rectal cancer: Code(s): C20 - Malignant neoplasm of rectum Status: Acute Assessment and Plan: Was not resectable at the time of his surgery March. Concerned this may have eroded into the urinary bladder on is now caused 2 different episodes of urosepsis. Consider urology consultation. (5) Ileostomy status: Code(s): Z93.2 - Ileostomy status Status: Acute Assessment and Plan: Working well. Associated mucous fistula was probed and is also patent and working well. No abscess or new enterocutaneous fistula. (6) Malnutrition: Qualifiers: Malnutrition type: protein-calorie malnutrition Protein-calorie malnutrition severity: moderate Qualified Code(s): E44.0 - Moderate protein-calorie malnutrition Code(s): E46 - Unspecified protein-calorie malnutrition Status: Chronic Assessment and Plan: Speech therapy is seeing the patient regarding oral intake or possibly resuming tube feeds. History of Present Illness Consult details Consult date: 06/11/19 Reason for consult: other ( Fecal abdominal wall drainage) Narrative: patient is a 63-year-old man who was admitted through the emergency room on June 08, 2019. He was residing at [facility]. At the senior living, he was noted to have a high potassium and low sodium. He was also complaining of weakness. The patient has some cognitive impairment and is not a good historian. He has a history of having had extensive surgery at [facility]. Fortunately, records of this admission came across the fax machine after I had finished interviewing the patient and examining him. . Those records showed that the patient presented on April 11, 2019 to the emergency room at [facility] with an acute abdomen. He had septic shock with an elevated lactate and evidence of abdominal free air. He was taken to surgery on that day and found to have an unresectable rectal cancer in the pelvis. He had fecal peritonitis and perforation of his cecum due to obstruction from the rectal tumor. The patient had right colectomy performed. He was given a right lower quadrant ileostomy. He was also given a right upper quadrant mucous fistula from the remaining proximal end of the transverse colon. Not surprisingly, he was exceedingly ill and remained in the hospital for nearly a month. He had a PEG gastrostomy tube placed while he was at [facility]. He had been started on a soft diet though before discharge. He has been admitted to [facility]
[2019-06-11 20:24] LABS: Hematocrit 22.8 % (42.0-52.0); Hemoglobin 7.9 g/dL (14.0-18.0)
[2019-06-12] VITALS (14 sets, daily range): BP systolic 92–118; BP diastolic 52–79; PULSE 72–100; RESP 18–22; TEMP 36–37.2; O2SAT 96–100
[2019-06-12] MEDS: metroNIDAZOLE 250MG/ISO 50 ML 250 MG/50 ML BAG 50 MG IVPB ×3 (00:17→12:07)
[2019-06-12] MEDS: KCL 40 MEQ/D5/0.9% SOD CHL 1,000 ML 70 ML IV CONT (02:10)
[2019-06-12 06:16] LABS: Basophils Absolute Auto 0.1 K/mm3 (0.0-0.1); Basophils Percent Auto 0.4 % (0.2-1.2); Eosinophils Absolute Auto 0.4 K/mm3 (0-0.3); Eosinophils Percent Auto 3.1 % (0-4.4); Hematocrit 24.3 % (42.0-52.0); Hemoglobin 8.3 g/dL (14.0-18.0); Immature Granulocyte Percent A 1.5 % (0-0.5); Lymphocytes Absolute Auto 1.22 K/mm3 (0.9-3.2); Lymphocytes Percent Auto 9.2 % (18.3-44.2); Mean Corpuscular HGB Conc 34.2 g/dl (32-36); Mean Corpuscular Hemoglobin 27.6 pg (26-34); Mean Corpuscular Volume 80.7 fl (80-100); Mean Platelet Volume 9.9 fl (7.4-10.4); Monocytes Absolute Auto 1.1 K/mm3 (0.1-0.6); Monocytes Percent Auto 8.1 % (2.6-8.5); Neutrophils Absolute Auto 10.3 K/mm3 (1.3-6.7); Neutrophils Percent Auto 77.7 % (45.5-73.1); Platelet Count Result 335 k/mm3 (150-375); Red Blood Count 3.01 M/mm3 (4.6-6.20); Red Cell Distribution Width 15.2 % (11.5-14.5); White Blood Count 13.3 K/mm3 (4.5-10.0)
[2019-06-12 06:29] LABS: Alanine Aminotransferase 40 U/L (4-50); Albumin Level 2.2 g/dL (3.5-5.1); Alkaline Phosphatase 246 U/L (38-126); Aspartate Amino Transferase 24 U/L (17-59); Bilirubin,Total 0.2 mg/dL (0.2-1.3); Blood Urea Nitrogen 7 mg/dL (9-20); Calcium 7.7 mg/dL (8.4-10.2); Carbon Dioxide 24 mmol/L (22-30); Chloride 108 mmol/L (98-107); Estimated CRCL calculation 123 ml/min; Estimated Glomerular Filt Rate > 60; Glucose 158 mg/dL (75-110); Magnesium 1.6 mg/dL (1.6-2.3); Potassium 3.7 mmol/L (3.4-5.0); Sodium 137 mmol/L (137-145)
--- NOTE | 2019-06-12 07:44 | WPDURCON ---
Assessment and Plan Assessment and plan (1) Rectal cancer: Code(s): C20 - Malignant neoplasm of rectum Status: Acute (2) Obstruction of rectum: Code(s): K62.4 - Stenosis of anus and rectum Status: Acute (3) Ileostomy status: Code(s): Z93.2 - Ileostomy status Status: Acute (4) Acute UTI (urinary tract infection): Code(s): N39.0 - Urinary tract infection, site not specified Status: Acute Assessment and Plan: Cystoscopy for evaluation of lower urinary tract Urology Consult Note HPI Date Seen: 06/12/19 Requesting Physician: Yusuf Ocampo MD Primary Care Provider: UNKNOWN,DOCTOR Consult Narrative Narrative: Guanakito Anderson is a 63 year old male who has recently been found to have a large unresectable rectal cancer. He has undergone a diverting ileostomy with mucous fistula at [facility] in the recent past. Since that time, he has had 2 episodes of urosepsis, raising the possibility of fistulization of this rectal cancer to the urinary tract. Upper urinary tract imaging with CT scan abdomen pelvis w/ contrast shows normal upper urinary tract. Patient localizes no antecedent difficulty voiding, known prostate problems, recurrent urinary tract infection, hematuria or urolithiasis. Review of Systems Cardiovascular: Cardiovascular: Denies chest pain, Denies lightheadedness, Denies palpitations and Denies dyspnea Respiratory: Respiratory: Denies dyspnea Gastrointestinal: Gastrointestinal: Denies diarrhea, Denies nausea and Denies vomiting Genitourinary: Genitourinary: Denies hematuria and Denies dysuria Endocrine: Endocrine: Denies palpitations PMFSH Past Medical History Medical History Acute respiratory failure Adenocarcinoma Bowel obstruction Colon cancer Dysphagia Gastrointestinal tube present Hypokalemia Paroxysmal atrial fibrillation Ventricular tachycardia Surgical History Surgical History History of bowel resection History of colon surgery History of ileostomy History of right hemicolectomy Family History Family History Father , probable cardiac disease age in 60s Heart disease Mother , natural causes age 79 No problems noted. 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 Gender identity (if verbalized by the patient): Male Spiritual care concerns: No Agree to blood products: Yes Meds Home Medications and Allergies Home Medications Medication Instructions Recorded Confirmed Type albuterol sulfate 2.5 mg INHALATION Q6H 05/19/19 06/09/19 History amiodarone 200 mg PO BID 05/19/19 06/09/19 History aspirin [Aspirin Low Dose] 81 mg PO DAILY 05/19/19 06/09/19 History furosemide 20 mg PO DAILY 05/19/19 06/09/19 History lisinopril 2.5 mg PO DAILY 05/19/19 06/09/19 History potassium chloride [Klor-Con 10] 10 meq PO DAILY 05/19/19 06/09/19 History rosuvastatin 40 mg PO HS 05/19/19 06/09/19 History cefdinir 300 mg PO Q12H #14 cap 05/25/19 06/09/19 Rx hydrocodone-acetaminophen 1 tablet PO Q6H PRN #15 tablet 05/25/19 06/09/19 Rx Allergies Allergy/AdvReac Type Severity Reaction Status Date / Time No Known Allergies Allergy Verified 06/08/19 20:26 Vital Signs Vital Signs - 24 hr 06/11/19 08:00 06/11/19 09:56 06/11/19 11:55 Temperature 96.9 F L Pulse Rate 84 88 83 Respiratory Rate 20 Blood Pressure 90/55 L Pulse O
--- NOTE | 2019-06-12 07:50 | PM.PNGS ---
Progress Note: A&P Assessment and Plan (1) Urinary tract infection: Code(s): N39.0 - Urinary tract infection, site not specified Status: Acute Assessment and Plan: urology to see. I am concerned that there is a malignant colovesical fistula causing the 2 episodes of sepsis the patient has experienced this month. If so, may need to be on prophylactic antibiotic therapy to avoid further occurrences. (2) Rectal cancer: Code(s): C20 - Malignant neoplasm of rectum Status: Chronic Assessment and Plan: patient not a surgical candidate at this time. Tumor was noted to be unresectable at his emergency surgery March. He is currently diverted with ileostomy and mucous fistula. Once patient no longer has an active infection, consider oncology evaluation. Patient does not have any acute surgical problem. He is not a candidate for surgery. I will follow peripherally. (3) Obstruction of rectum: Code(s): K62.4 - Stenosis of anus and rectum Status: Chronic Assessment and Plan: Relieved by diversion as noted above. (4) Ileostomy status: Code(s): Z93.2 - Ileostomy status Status: Chronic Assessment and Plan: Reviewed with stoma nurses yesterday. Functioning well. Subjective Subjective Date/Time Seen: 06/12/19 07:50 Patient reports: no new complaints, bowel movement ( Good ileostomy output) and afebrile Review of Systems Review of Systems: All systems reviewed & are unremarkable except as noted in HPI and below ( HPI) ROS unobtainable: Yes unobtainable due to mental status ( patient has cognitive impairment) Exam Const: General: cooperative, comfortable, no acute distress, well developed, alert and awake Nutritional Appearance: thin and underweight Resp: Effort & Inspection: normal respiratory effort Auscultation: clear to auscultation bilaterally Cardio: Rate: regular rate Rhythm: regular rhythm GI: Inspection: scar GI Palp: Yes Soft to palpation, No Tenderness to palpation present (GI), No Guarding due to palpation present (GI), No Rebound tenderness present and Yes Other GI palpation findings present ( good ileostomy output, dressing dry over mucous fistula right upper quadra) Auscultation: normal bowel sounds Extrem: General: no calf tenderness and no edema Objective Data Vital Signs Vital Signs: Vital Signs - 24 hr 06/11/19 08:00 06/11/19 09:56 06/11/19 11:55 Temperature 36.1 C L Pulse Rate 84 88 83 Respiratory Rate 20 Blood Pressure 90/55 L Pulse Oximetry 85 L 06/11/19 12:00 06/11/19 14:00 06/11/19 15:57 Temperature 35.9 C L Pulse Rate 80 84 73 Respiratory Rate 18 Blood Pressure 116/61 Pulse Oximetry 98 06/11/19 16:00 06/11/19 17:56 06/11/19 19:59 Temperature 36.2 C L Pulse Rate 73 85 80 Respiratory Rate 18 Blood Pressure 96/61 L Pulse Oximetry 98 06/11/19 20:00 06/11/19 22:00 06/12/19 00:00 Temperature 36.0 C L Pulse Rate 80 76 72 Respiratory Rate 18 Blood Pressure 100/52 L Pulse Oximetry 98 98 06/12/19 02:00 06/12/19 04:00 06/12/19 06:00 Temperature 36.8 C Pulse Rate 82 85 95 Respiratory Rate 18 Blood Pressure 92/54 L Pulse Oximetry 99 Intake/Output Intake/Output: Intake & Output 06/09/19 06/10/19 06/11/19 06/12/19 23:59 23:59 23:59 23:59 Intake Total 3665 3180 1767 1240 Output Total 2700 1775 600 850 Balance 965 1405 1167 390 Meds/Results Medications: Active Medications Generic Name Dose Route Start Last Admin Trade Name Freq PRN Reason Stop Dose Admin Acetaminophen 650 mg 06/09/19 01:38 Tylenol Tablet PO Q4H PRN Mild Pain (1-3) or Fever Enoxaparin Sodium 40 mg 06/10/19 09:00 06/11/19 08:02 Lovenox SUB-Q 40 mg DAILY ELIESER Administration Levofloxacin/Dextrose 500 mg in 100 mls @ 100 mls/hr 06/10/19 09:00 06/11/19 09:02 Levaquin 500 Mg/D5w 100 Ml IVPB Infused Q24H ELIESER Infusion Metronidazo
--- NOTE | 2019-06-12 08:01 | WPDANESEPPF ---
Anes - Initial Pre Proc Eval Procedure: Operation Date: 06/12/19 14:15 Proposed Procedures p Cystoscopy - Guille Sandoval MD Guanakito Anderson is a 63 year old male who has recently been found to have a large unresectable rectal cancer. He has undergone a diverting ileostomy with mucous fistula at [facility] in the recent past. Since that time, he has had 2 episodes of urosepsis, raising the possibility of fistulization of this rectal cancer to the urinary tract. Upper urinary tract imaging with CT scan abdomen pelvis w/ contrast shows normal upper urinary tract. Date/Time: 06/12/19 08:01 Pre Op Diagnosis: SEPSIS, SEPTIC SHOCK Patient Data Age: 63 Gender: M Height: 1.7 m Weight: 57.5 kg Last Vital Signs Temp 36.8 C 06/12/19 04:00 Pulse 95 06/12/19 06:00 Resp 18 06/12/19 04:00 BP 92/54 L 06/12/19 04:00 Pulse Ox 99 06/12/19 04:00 Allergies Allergy/AdvReac Type Severity Reaction Status Date / Time No Known Allergies Allergy Verified 06/08/19 20:26 Home Medications Medication Instructions Recorded Confirmed Type albuterol sulfate 2.5 mg INHALATION Q6H 05/19/19 06/09/19 History amiodarone 200 mg PO BID 05/19/19 06/09/19 History aspirin [Aspirin Low Dose] 81 mg PO DAILY 05/19/19 06/09/19 History furosemide 20 mg PO DAILY 05/19/19 06/09/19 History lisinopril 2.5 mg PO DAILY 05/19/19 06/09/19 History potassium chloride [Klor-Con 10] 10 meq PO DAILY 05/19/19 06/09/19 History rosuvastatin 40 mg PO HS 05/19/19 06/09/19 History cefdinir 300 mg PO Q12H #14 cap 05/25/19 06/09/19 Rx hydrocodone-acetaminophen 1 tablet PO Q6H PRN #15 tablet 05/25/19 06/09/19 Rx Laboratory Tests 06/11/19 06/11/19 06/11/19 14:57 14:57 20:14 WBC RBC Hgb 7.5 g/dL L g/dL 7.9 g/dL L g/dL (14.0-18.0) (14.0-18.0) Hct 21.2 % L % 22.8 % L % (42.0-52.0) (42.0-52.0) MCV MCH MCHC RDW Plt Count MPV Immature Gran % (Auto) Neut % (Auto) Lymph % (Auto) [place] % (Auto) Eos % (Auto) Baso % (Auto) Lymph # (Auto) [place] # (Auto) Eos # (Auto) Baso # (Auto) Abs Immat Gran (auto) Absolute Neuts (auto) Absolute Nucleated RBC Nucleated RBC % Sodium Potassium 3.9 mmol/L mmol/L (3.4-5.0) Chloride Carbon Dioxide BUN Creatinine Estim Creat Clear Calc Estimated GFR Glucose Calcium Magnesium Total Bilirubin AST ALT Alkaline Phosphatase Total Protein Albumin 06/12/19 06/12/19 06:05 06:05 WBC 13.3 K/mm3 H K/mm3 (4.5-10.0) RBC 3.01 M/mm3 L M/mm3 (4.6-6.20) Hgb 8.3 g/dL L g/dL (14.0-18.0) Hct 24.3 % L % (42.0-52.0) MCV 80.7 fl fl (80-100) MCH 27.6 pg pg (26-34) MCHC 34.2 g/dl g/dl (32-36) RDW 15.2 % H % (11.5-14.5) Plt Count 335 k/mm3 k/mm3 (150-375) MPV 9.9 fl fl (7.4-10.4) Immature Gran % (Auto) 1.5 % H % (0-0.5) Neut % (Auto) 77.7 % H % (45.5-73.1) Lymph % (Auto) 9.2 % L % (18.3-44.2) [place] % (Auto) 8.1 % % (2.6-8.5) Eos % (Auto) 3.1 % % (0-4.4) Baso % (Auto) 0.4 % % (0.2-1.2) Lymph # (Auto) 1.22 K/mm3 K/mm3 (0.9-3.2) [place] # (Auto) 1.1 K/mm3 H K/mm3 (0.1-0.6) Eos # (Auto) 0.4 K/mm3 H K/mm3 (0-0.3) Baso # (Auto) 0.1 K/mm3 K/mm3 (0.0-0.1) Abs Immat Gran (auto) 0.20 K/mm3 H K/mm3 (0.00-0.031) Absolute Neuts (auto) 10.3 K/mm3 H K/mm3 (1.3-6.7) Absolute Nucleated RBC 0.0 K/mm3 K/mm3 (0.0-0.012) Nucleated RBC % 0.0 % % (0.0-0.2)
[2019-06-12] MEDS: ENOXAPARIN 40 MG/0.4 ML SYRINGE SUB-Q (08:13)
--- NOTE | 2019-06-12 08:44 | PCOTNOTE ---
OT evaluation attempted this am. Patient down for testing. Will attempt OT evaluation at later time.
--- NOTE | 2019-06-12 08:45 | PCPTNOTE ---
Attempted PT eval at 8:45 a.m. - pt out of room for testing. Will try again this a.m. prior to procedure this p.m.
--- NOTE | 2019-06-12 09:14 | PCSTNOTE ---
Please refer to the Modified Barium Swallow Evaluation in the EMR.
[2019-06-12] MEDS: levoFLOXacin 500 MG/D5W 100 ML 500 MG/100 ML BAG 100 MG IVPB (10:18)
[2019-06-12 12:06] LABS: Glucose Point of Care 119 (65-105)
--- NOTE | 2019-06-12 12:53 | PCDIET ---
Nutrition Follow-Up Complete: Nutrition Diagnosis: Underweight related to involuntary weight loss as evidenced by significant weight loss with patient at 85% of ideal body weight. Nutrition Goal: Patient to meet estimated nutritional needs. Goal not met. Tube feedings on hold for possible colovesical fistula. If unable/unexpected to resume enteral feedings in the next 2-3 days, recommend PN. Recommend Clinimix E at 80mL/hr goal rate with 250mL 20% lipid emulsion daily for 1863kcal and 96g protein daily. Last recorded weight is 57.5 kg which is increased from last review. +I/O. Bowel Motility: +Ileostomy output. Labs Reviewed: Hgb (8.3), Hct (24.3), Glu (119), BUN (7), Cr (0.4), Alb (2.2) Meds Noted: Levaquin, Flagyl, KCl Additional Notes: Right abdomen with mucous fistula/ileostomy. No pressure sores documented. Will continue to monitor with same goal. Nutrition Monitoring and Evaluation: Follow up every Saturday/Saturday.
[2019-06-12] MEDS: LACTATED RINGERS 1,000 ML 30 ML IV CONT (14:00)
[2019-06-12] MEDS: LIDOCAINE HCL 2% GEL UROJET 10 ML PKG MUCOUS MEM (15:00)
--- NOTE | 2019-06-12 15:05 | PM.PROC ---
Procedure Note - Detailed Date of procedure: 06/12/19 Pre-op diagnosis: SEPSIS, SEPTIC SHOCK Cystoscopy Post-op diagnosis: same (Probable colovesical fistula) Procedure performed: Cystoscopy Description of procedure: Patient is brought to the operative suite where he has prepped and draped in routine sterile fashion while in a dorsal lithotomy position. 2% lidocaine is introduced intraurethrally and allowed to stand for appropriate period of time. Systemic sedation is administered per the anesthesia department. Cystoscopy is undertaken with a 21 F rigid cystoscope. There is no urethral strictures and only minimal prostatic enlargement. The bladder floor shows marked displacement from his known large unresectable rectal mass. 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 There is. I material floating within the bladder. The lateral and anterior bladder cervantes are normal without hyperemia or osseous neoplasm. I removed the cystoscope. The patient had requested not to have a urethral catheter placed. Thomason unresectable nature of this patient rectal cancer I do not see any real options to manage his possible / probable colovesical fistula. I would, however, recommend long-term suppressive antibiotics (ie. Keflex 500 mg daily). Anesthesia: MAC Surgeon: Guille Sandoval MD Estimated blood loss (mL): 0 Urine output (mL): 0 Drains: No Packing: No Pathology: none sent Complications: No immediate complications Condition: stable Disposition: PACU
--- NOTE | 2019-06-12 16:22 | PM.DS ---
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 Old records reviewed. General surgery consulted but felt this is normal result. Instructions given to nursing staff for care of the fistula (2) Septic shock: Code(s): A41.9 - Sepsis, unspecified organism; R65.21 - Severe sepsis with septic shock Status: Acute Assessment and Plan: Patient presents with septic shock (not responsive to IV fluid boluses), leukocytosis and abnormal urinalysis consistent with UTI. Source of sepsis appears to be urinary. BCx NGTD; UCx growing Enterobacter. He was on pressor support but able to be weaned off. BP still soft at times. WBC up to 27.8K but improved to 13K. (3) Acute UTI (urinary tract infection): Code(s): N39.0 - Urinary tract infection, site not specified Status: Acute Assessment and Plan: UA noted. Urine culture growing Enterobacter sensitive to Levaquin. Because of the CT scan findings, urology ws consulted and cystoscopy performed on 06/12/19. This showed bladder floor with marked displacement from his known large unresectable rectal mass. 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 Continue Levaquin to complete a course and then start Keflex 500mg daily for prevention. (4) Leukocytosis: Qualifiers: Leukocytosis type: unspecified Qualified Code(s): D72.829 - Elevated white blood cell count, unspecified Code(s): D72.829 - Elevated white blood cell count, unspecified Status: Acute Assessment and Plan: Secondary to septic shock and UTI. WBC down to 13K today. (5) Chronic anemia: Code(s): D64.9 - Anemia, unspecified Status: Chronic Assessment and Plan: Hgb 9-10 range last admission. Likely multifactorial including nutritional deficiencies and anemia of chronic disease. No signs of acute blood loss. Hgb dropped to 7.5 but climbed to 8.3 at discharge. (6) Hyponatremia: Code(s): E87.1 - Hypo-osmolality and hyponatremia Status: Acute Assessment and Plan: Na 127 on admission. Urine sodium 8. Likely secondary to dehydration. IVF given. Repeat Na 137. (7) Transaminitis: Code(s): R74.0 - Nonspecific elevation of levels of transaminase and lactic acid dehydrogenase [LDH] Status: Acute Assessment and Plan: AST 89 and ALT 133 on admission. Likely secondary to septic shock and hypoperfusion. Repeat levels normalized. (8) Acute hyperkalemia: Code(s): E87.5 - Hyperkalemia Status: Acute Assessment and Plan: Potassium was 5.9 on admission. Cortisol level mildly elevated but not unexpected. The patient was on potassium supplements and these have been stopped. Potassium normal today. (9) Paroxysmal atrial fibrillation: Code(s): I48.0 - Paroxysmal atrial fibrillation Status: Chronic Assessment and Plan: EKG showing normal sinus rhythm. Tele showing patient maintaining NSR. Echo 04/26 showing EF 30-44% with global hypokinesis and Grade1 distolic dysfunction. The patient is not a candidate for anticoagulation and has not been on any blood thinners. Was on amiodarone on admission but placed on hold. (10) Malnutrition: Qualifiers: Malnutrition type: protein-calorie malnutrition Protein-calorie malnutrition severity: moderate Qualified Code(s): E44.0 - Moderate protein-calorie malnutrition Code(s): E46 - Unspecified protein-calorie malnutrition Status: Chronic Assessment and Plan: Patient has PEG tube in place. Speech therapy evaluating shows the patien
== END 2019-06-12 18:01 | DRG 720 ==
LOC: ANHED 23:39 → ANHICU 06-09 00:35 → ANHIMU 06-10 16:55
PROVIDERS: Emergency Medicine; Urology; Admitting Provider Family Medicine; Emergency Provider Emergency Medicine; Visit Provider Internal Medicine
PROC: 0TJB8ZZ Inspection of Bladder, Via Natural or Artificial Opening Endoscopic (ICD-10-PCS; CPT 52000; principal; 2019-06-12 14:15)
DX: A41.51 Sepsis due to Escherichia coli [E. coli] (principal); R65.21 Severe sepsis with septic shock; N39.0 Urinary tract infection, site not specified; B96.1 Klebsiella pneumoniae [K. pneumoniae] as the cause of diseases classified elsewhere; B96.4 Proteus (mirabilis) (morganii) as the cause of diseases classified elsewhere; Z20.828 Contact with and (suspected) exposure to other viral communicable diseases; N32.1 Vesicointestinal fistula; C20 Malignant neoplasm of rectum; E87.2 Acidosis; E87.1 Hypo-osmolality and hyponatremia; E86.0 Dehydration; D72.829 Elevated white blood cell count, unspecified; D63.8 Anemia in other chronic diseases classified elsewhere; D53.9 Nutritional anemia, unspecified; R74.0 Nonspecific elevation of levels of transaminase and lactic acid dehydrogenase [LDH]; E87.5 Hyperkalemia; I48.0 Paroxysmal atrial fibrillation; E44.0 Moderate protein-calorie malnutrition; Z68.1 Body mass index [BMI] 19.9 or less, adult; Z85.038 Personal history of other malignant neoplasm of large intestine; Z87.891 Personal history of nicotine dependence; Z93.2 Ileostomy status
CPT/HCPCS: 36415; 36569; 70553; 71045; 74177; 80048; 80053; 81001; 82533; 83605; 83735; 83935; 84100; 84132; 84300; 84450; 84460; 85014; 85018; 85025; 85027; 85610; 85730; 87040; 87077; 87086; 87088; 87186; 87635; 92611; 93005; 96361; 96365; 96375; 97161; 97165; 99291; A9270; A9577; C1751; J0696; J1650; J1815; J1956; J2370; J3475; J3480; J7030; J7060; J7120; Q9967; U0003